=== PATIENT | male | born 1960 | race Caucasian/White ===

== ENCOUNTER 2018-01-05 11:00 | Inpatient (IN) ==
--- OUTSIDE RECORDS SUMMARY | 2018-01-05 11:24 | External Medical Summary | Referral Summary ---
:1960 Author Organization [facility] [place] [address] Care Team Providers Name Role Phone Roman Palomo Primary Care Physician Encounter VC Date(s): 10/16/16 - 10/16/16 [facility] [place] [phone] [place] Discharge Diagnosis: Chronic gout Discharge Diagnosis: Diabetes mellitus, type 2 Discharge Disposition: 01-Home or Self Care Attending Physician: Roman Palomo DO Admitting Physician: Roman Palomo DO Vital Signs Most recent to oldest [Reference Range]: 1 Temperature Tympanic [36.6-38.1 degC] 37.0 degC (10/16/16 3:12 PM) Peripheral Pulse Rate [60-100 bpm] 92 bpm (10/16/16 3:12 PM) Respiratory Rate [14-20 br/min] 16 br/min (10/16/16 3:12 PM) Blood Pressure [90-140/60-90 mmHg] 140/88 mmHg (10/16/16 3:12 PM) SpO2 97 % (10/16/16 3:12 PM) Problem List Condition Effective Dates Status Health Status Informant Diabetes mellitus type 2(Confirmed) Active Gout (disorder)(Confirmed) Active High cholesterol(Confirmed) Active Pure hypercholesterolemia Active (disorder)(Confirmed) Allergies, Adverse Reactions, Alerts No Known Medication Allergies Medications allopurinol 100 mg oral tablet See Instructions, TAKE ONE TABLET BY MOUTH DAILY ALONG WITH THE 300 MG TABLET, # 30 tabs, 3 Refill(s), eRx: [facility] #[id number] Start Date: 08/11/16 Status: Orderedcolchicine 0.6 mg oral tablet See Instructions, TAKE ONE TABLET BY MOUTH DAILY, # 30 tabs, 3 Refill(s), eRx: [facility] #[id number] Start Date: 08/11/16 Status: OrderedContour test strips Contour test strips, See Instructions, check blood sugar fasting and 2 hours after meals., # 100 Each, 1 Refill(s), Pharmacy: [facility] #[id number], check blood sugar fasting and 2 hours after meals. Start Date: 01/01/15 Status: OrderedCONTOUR TEST STRIPS See Instructions, CHECK BLOOD SUGARS FASTING AND 2 HOURS AFTER MEALS EVERY OTHER DAY, # 100 strip, 1Refill(s), eRx: [facility] #[id number], CHECK BLOOD SUGARS FASTING AND 2 HOURS AFTER MEALS EVERY OTHER DAY Start Date: 05/27/15 Status: OrderedCONTOUR TEST STRIPS See Instructions, CHECK BLOOD SUGARS FASTING AND 2 HOURS AFTER MEALS EVERY OTHER DAY, # 100 strip, 1Refill(s), eRx: [facility] #[id number], CHECK BLOOD SUGARS FASTING AND 2 HOURS AFTER MEALS EVERY OTHER DAY Start Date: 02/18/15 Status: Ordereddiclofenac 1% topical gel 4 g, Topical, QID, not to exceed 16 grams/day/single joint of lower extremities , # 300 g, 0 Refill(s), Pharmacy: [facility] #[id number] Start Date: 05/14/16 Status: OrderedglipiZIDE 5 mg oral tablet See Instructions, TAKE ONE TABLET BY MOUTH TWICE A DAY, # 60 tabs, 2 Refill(s), eRx: [facility] #[id number], TAKE ONE TABLET BY MOUTH TWICE A DAY Start Date: 03/03/16 Status: Orderedindomethacin 50 mg oral capsule 50 mg 1 caps, Oral, BID, as needed for gout pain, # 60 caps, 0 Refill(s), Pharmacy: [facility]#[id number], 1 caps Oral BID,x30 days,PRN:as needed for gout pain Start Date: 04/21/16 Stop Date: 05/21/16 Status: OrderedmetFORMIN 1,000 mg, Oral, BID, 0 Refill(s) Start Date: 01/18/16 Status: Ordered Results Hematology Most recent to oldest [Reference Range]: 1 WBC [4.8-10.8 10*3/uL] 5.3 10*3/uL (10/16/16 4:20 PM) RBC [4.60-6.20] 4.96 (10/16/16 4:20 PM) Hgb [14.0-18.0 gm/dL] 14.6 gm/dL (10/16/16 4:20 PM) Hct [42.0-52.0 %] 42.7 % (10/16/16 4:20 PM) MCV [82.0-99.0 fL] 86.1 fL (10/16/16 4:20 PM) MCH [27.0-32.0 pg] 29.4 pg (10/16/16 4:20 PM) MCHC [32.0-36.0 gm/dL] 34.2 gm/dL (10/16/16 4:20 PM) RDW [11.5-14.5 %] 12.9 % (10/16/16 4:20 PM) Platelet [150-400 10*3/uL] 231 10*3/uL (10/16/16 4:20 PM) MPV [8.8-14.8 fL] 10.3 fL (10/16/16 4:20 PM) Immature Granulocytes [0.0-1.0 %] 0.2 % (10/16/16 4:20 PM) Neutrophils [51-75 %] 51 % (10/16/16 4:20 PM) Lymphocytes [20-46 %] 35 % (10/16/16 4:20 PM) Monocytes [4-11 %] 10 % (10/16/16 4:20 PM) Eosinophils [0-4 %] 3 % (10/16/16 4:20 PM) Basophils [0-2 %] 0 % (10/16/16 4:20 PM) Neutro Absolute [1.90-7.00] 2.74 (10/16/16 4:20 PM) Lymph Absolute [0.80-3.30] 1.88 (10/16/16 4:20 PM) [place] Absolute [0.30-1.00] 0.52 (10/16/16 4:20 PM) Eos Absolute [0.00-0.50] 0.16 (10/16/16 4:20 PM) Baso Absolute [0.00-0.20] 0.02 (10/16/16 4:20 PM) Chemistry Most recent to oldest [Reference Range]: 1 Sodium Lvl [135-144 mEq/L] 139 mEq/L (10/16/16 4:20 PM) Potassium Lvl [3.5-5.2 mEq/L] 4.5 mEq/L (10/16/16 4:20 PM) Chloride [99-111 mEq/L] 107 mEq/L (10/16/16 4:20 PM) CO2 [23-31 mEq/L] 23 mEq/L (10/16/16 4:20 PM) AGAP [3-20] 9 (10/16/16 4:20 PM) BUN [8-26 mg/dL] 15 mg/dL (10/16/16 4:20 PM) Glucose Lvl [70-99 mg/dL] 134 mg/dL *HI* (10/16/16 4:20 PM) Creatinine Lvl [0.72-1.25 mg/dL] 1.07 mg/dL (10/16/16 4:20 PM) eGFR [>60 mL/min] >60 mL/min 1 (10/16/16 4:20 PM) Calcium Lvl [8.4-10.2 mg/dL] 9.3 mg/dL 2 (10/16/16 4:20 PM) Albumin Lvl [3.5-5.0 gm/dL] 4.3 gm/dL (10/16/16 4:20 PM) Total Protein [6.1-7.7 gm/dL] 6.9 gm/dL (10/16/16 4:20 PM) Globulin [1.8-4.0 gm/dL] 2.6 gm/dL (10/16/16 4:20 PM) ALT [0-55 U/L] 22 U/L (10/16/16 4:20 PM) AST [5-34 U/L] 22 U/L (10/16/16 4:20 PM) Alk Phos [40-150 U/L] 61 U/L (10/16/16 4:20 PM) Bili Total [0.2-1.2 mg/dL] 0.5 mg/dL (10/16/16 4:20 PM) Uric Acid [3.5-7.2 mg/dL] 5.4 mg/dL (10/16/16 4:20 PM) Chol [0-199 mg/dL] 172 mg/dL (10/16/16 4:20 PM) Trig [0-149 mg/dL] 204 mg/dL *HI* (10/16/16 4:20 PM) HDL [40-84 mg/dL] 33 mg/dL *LOW* (10/16/16 4:20 PM) LDL [0-130 mg/dL] 98 mg/dL (10/16/16 4:20 PM) VLDL Cholesterol [0-28 mg/dL] 41 mg/dL *HI* (10/16/16 4:20 PM) Cardiac Risk [0.0-5.7] 5.2 (10/16/16 4:20 PM) Hgb A1c [4.1-5.6 %] 8.4 % *HI* (10/16/16 4:20 PM) eAvg Glucose 194.4 mg/dL (10/16/16 4:20 PM) 1Result Comment: Multiply eGFR results by 1.21 for race.2Result Comment: Please note reference range change effective 10/02/2016. Immunizations No data available for this section Procedures Procedure Date Related Diagnosis Body Site Colonoscopy1 03/07/09 Rectal under anesthesia, part. fistulotomy with 03/07/09 placement of 1Colonoscopy within normal limits. 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 Plan repeat colonoscopy in 10 years (03/07/2019) Social History Social History Type Response Smoking Status Former smoker Assessment and Plan Extracted from: Title: Office Visit Note Author: Roman Palomo DO Date: 10/16/16 Assessment/Plan Chronic gout 1. Continue with daily Allopurinol and Colchicine as previous 2. Continue avoiding high protein diet 3. Recommend good hydration 4. Continue with Indomethacin during the flares but we need to be careful since he has CKD-3 5. Uric acid level is pending Ordered: Office Visit Level 4 Est 68256 Diabetes mellitus, type 2 1. Continue with current medications and dietary changes. 2. Continue with daily exercising 3. A1C is pending Ordered: CBC w/ Differential Comprehensive Metabolic Panel Hemoglobin A1c Office Visit Level 4 Est 64034 Uric Acid Gouty arthritis 1. Continue with recommendations as per [facility]. Ordered: CBC w/ Differential Comprehensive Metabolic Panel Hemoglobin A1c Office Visit Level 4 Est 28411 Uric Acid Mixed hyperlipidemia CMP is pending for management of his medication. Ordered: Office Visit Level 4 Est 89909
--- OUTSIDE RECORDS SUMMARY | 2018-01-05 11:24 | External Medical Summary | Referral Summary ---
:1960 Author Organization [facility] Rheumatology Address [address] [place] [address] [place] [address] Care Team Providers Name Role Phone Roman Palomo Primary Care Physician Encounter VC Date(s): 11/26/16 - 11/26/16 [facility], [address] [place] [phone] [place] Discharge Diagnosis: Medication management Discharge Diagnosis: Gout Discharge Disposition: 01-Home or Self Care Attending Physician: Britt Schwarz MD Admitting Physician: Britt Schwarz MD Vital Signs Most recent to oldest [Reference Range]: 1 Peripheral Pulse Rate [60-100 bpm] 87 bpm (11/26/16 3:47 PM) Blood Pressure [90-140/60-90 mmHg] 152/96 mmHg *HI* (11/26/16 3:47 PM) Problem List Condition Effective Dates Status Health Status Informant Diabetes mellitus type 2(Confirmed) Active High cholesterol(Confirmed) Active Gout (disorder)(Confirmed) Active Pure hypercholesterolemia Active (disorder)(Confirmed) Allergies, Adverse Reactions, Alerts No Known Medication Allergies Medications allopurinol 100 mg oral tablet mg tabs, Oral, Daily, 0 Refill(s) Start Date: 11/26/16 Status: Orderedallopurinol 300 mg oral tablet See Instructions, TAKE ONE TABLET BY MOUTH DAILY, # 30 tabs, eRx: [facility] #[id number] Start Date: 11/02/16 Status: Orderedcolchicine 0.6 mg oral tablet See Instructions, TAKE ONE TABLET BY MOUTH DAILY, # 30 tabs, eRx: [facility] #[id number] Start Date: 11/02/16 Status: OrderedContour test strips Contour test strips, See Instructions, check blood sugar fasting and 2 hours after meals., # 100 Each, 1 Refill(s), Pharmacy: [facility] #[id number], check blood sugar fasting and 2 hours after meals. Start Date: 01/01/15 Status: OrderedCONTOUR TEST STRIPS See Instructions, CHECK BLOOD SUGARS FASTING AND 2 HOURS AFTER MEALS EVERY OTHER DAY, # 100 strip, 1Refill(s), eRx: [facility] #[id number], CHECK BLOOD SUGARS FASTING AND 2 HOURS AFTER MEALS EVERY OTHER DAY Start Date: 05/27/15 Status: OrderedCONTOUR TEST STRIPS See Instructions, CHECK BLOOD SUGARS FASTING AND 2 HOURS AFTER MEALS EVERY OTHER DAY, # 100 strip, 1Refill(s), eRx: [facility] #[id number], CHECK BLOOD SUGARS FASTING AND 2 HOURS AFTER MEALS EVERY OTHER DAY Start Date: 02/18/15 Status: Ordereddiclofenac 1% topical gel 4 g, Topical, QID, not to exceed 16 grams/day/single joint of lower extremities , # 300 g, 0 Refill(s), Pharmacy: [facility] #[id number] Start Date: 05/14/16 Status: OrderedglipiZIDE 5 mg oral tablet See Instructions, TAKE ONE TABLET BY MOUTH TWICE A DAY, # 60 tabs, 2 Refill(s), eRx: [facility] #[id number], TAKE ONE TABLET BY MOUTH TWICE A DAY Start Date: 03/03/16 Status: Orderedindomethacin 50 mg oral capsule 50 mg 1 caps, Oral, BID, as needed for gout pain, # 60 caps, 0 Refill(s), Pharmacy: [facility]#[id number], 1 caps Oral BID,x30 days,PRN:as needed for gout pain Start Date: 04/21/16 Stop Date: 05/21/16 Status: OrderedmetFORMIN 1,000 mg, Oral, BID, 0 Refill(s) Start Date: 01/18/16 Status: Ordered Results No data available for this section Immunizations No data available for this section [...] Extracted from: Title: Office Visit Note Author: Britt Schwarz MD Date: 11/26/16 Assessment/Plan 1.Gout He appears overall to be stable. He has had occasional twinges of pain. He also appears to havemild osteoarthritis also first MTPs and may have some painrelated to this. Currently I will co ntinue allopurinol 400 mg and colchicine. He will let us know if any changes. 2.Medication management He had labwork including also liver testsdone last monthwith his primary care doctor which appears to be stable. Follow-up in 3-4 months.
--- OUTSIDE RECORDS SUMMARY | 2018-01-05 11:24 | External Medical Summary | Referral Summary ---
:1960 Author Organization [facility] [place] [address] Care Team Providers Name Role Phone Fernandez Morgan Primary Care Physician Encounter VC Date(s): 12/28/14 - 12/28/14 [facility] [place] [phone] Discharge Diagnosis: Gout (disorder) Discharge Diagnosis: High cholesterol Discharge Diagnosis: Diabetes mellitus type 2 Discharge Diagnosis: Epicondylitis, lateral (tennis elbow) Discharge Disposition: 01-Home or Self Care Attending Physician: Fernandez Morgan MD Admitting Physician: Fernandez Morgan MD Vital Signs Most recent to oldest [Reference Range]: 1 Temperature Tympanic [36.6-38.1 degC] 36.5 degC *LOW* (12/28/14 3:35 PM) Peripheral Pulse Rate [60-100 bpm] 83 bpm (12/28/14 3:35 PM) Respiratory Rate [14-20 br/min] 16 br/min (12/28/14 3:35 PM) Blood Pressure [90-140/60-90 mmHg] 136/84 mmHg (12/28/14 3:35 PM) SpO2 96 % (12/28/14 3:35 PM) Problem List Condition Effective Dates Status Health Status Informant Diabetes mellitus type 2(Confirmed) Active Gout (disorder)(Confirmed) Active High cholesterol(Confirmed) Active Pure hypercholesterolemia Active (disorder)(Confirmed) Allergies, Adverse Reactions, Alerts No Known Medication Allergies Medications allopurinol 100 mg oral tablet See Instructions, TAKE ONE TABLET BY MOUTH DAILY, # 30 tabs, 1 Refill(s), eRx: [facility] #[id number], TAKE ONE TABLET BY MOUTH DAILY Start Date: 06/17/15 Status: OrderedContour test strips Contour test strips, See Instructions, check blood sugar fasting and 2 hours after meals., # 100 Each, 1 Refill(s), Pharmacy: [facility] #[id number], check blood sugar fasting and 2 hours after meals. Start Date: 01/01/15 Status: OrderedCONTOUR TEST STRIPS See Instructions, CHECK BLOOD SUGARS FASTING AND 2 HOURS AFTER MEALS EVERY OTHER DAY, # 100 strip, 1Refill(s), eRx: [facility] #[id number], CHECK BLOOD SUGARS FASTING AND 2 HOURS AFTER MEALS EVERY OTHER DAY Start Date: 05/27/15 Status: OrderedCONTOUR TEST STRIPS See Instructions, CHECK BLOOD SUGARS FASTING AND 2 HOURS AFTER MEALS EVERY OTHER DAY, # 100 strip, 1Refill(s), eRx: [facility] #[id number], CHECK BLOOD SUGARS FASTING AND 2 HOURS AFTER MEALS EVERY OTHER DAY Start Date: 02/18/15 Status: Orderedindomethacin 0 Refill(s) Start Date: 05/08/15 Status: OrderedLopid 600 mg oral tablet See Instructions, TAKE ONE TABLET BY MOUTH TWICE A DAY, # 180 tabs, 1 Refill(s) , eRx: [facility] #[id number], TAKE ONE TABLET BY MOUTH TWICE A DAY Start Date: 01/22/15 Status: OrderedmetFORMIN 1000 mg oral tablet See Instructions, TAKE ONE TABLET BY MOUTH TWICE A DAY, # 60 tabs, 1 Refill(s), eRx: [facility] #[id number], TAKE ONE TABLET BY MOUTH TWICE A DAY Start Date: 06/28/15 Status: Ordered Results Hematology Most recent to oldest [Reference Range]: 1 WBC [4.8-10.8 10*3/uL] 6.8 10*3/uL (12/28/14 4:02 PM) RBC [4.60-6.20 10*6/uL] 4.87 10*6/uL (12/28/14 4:02 PM) Hgb [14.0-18.0 gm/dL] 14.5 gm/dL (12/28/14 4:02 PM) Hct [42.0-52.0 %] 40.7 % *LOW* (12/28/14 4:02 PM) MCV [82.0-99.0 fL] 83.6 fL (12/28/14 4:02 PM) MCH [27.0-32.0 pg] 29.8 pg (12/28/14 4:02 PM) MCHC [32.0-36.0 gm/dL] 35.6 gm/dL (12/28/14 4:02 PM) RDW [11.5-14.5 %] 12.6 % (12/28/14 4:02 PM) Platelet [150-400 10*3/uL] 250 10*3/uL (12/28/14 4:02 PM) MPV [8.8-14.8 fL] 10.0 fL (12/28/14 4:02 PM) Immature Granulocytes [0.0-1.0 %] 0.3 % (12/28/14 4:02 PM) Neutrophils [51-75 %] 57 % (12/28/14 4:02 PM) Lymphocytes [20-46 %] 31 % (12/28/14 4:02 PM) Monocytes [4-11 %] 9 % (12/28/14 4:02 PM) Eosinophils [0-4 %] 3 % (12/28/14 4:02 PM) Basophils [0-2 %] 0 % (12/28/14 4:02 PM) Neutro Absolute [1.90-7.00 THOUS] 3.85 THOUS (12/28/14 4:02 PM) Lymph Absolute [0.80-3.30 THOUS] 2.09 THOUS (12/28/14 4:02 PM) [place] Absolute [0.30-1.00 THOUS] 0.61 THOUS (12/28/14 4:02 PM) Eos Absolute [0.00-0.50 THOUS] 0.18 THOUS (12/28/14 4:02 PM) Baso Absolute [0.00-0.20 THOUS] 0.03 THOUS (12/28/14 4:02 PM) Chemistry Most recent to oldest [Reference Range]: 1 Sodium Lvl [135-144 mEq/L] 139 mEq/L (12/28/14 4:02 PM) Potassium Lvl [3.5-5.2 mEq/L] 4.0 mEq/L (12/28/14 4:02 PM) Chloride [99-111 mEq/L] 109 mEq/L (12/28/14 4:02 PM) CO2 [23-31 mEq/L] 22 mEq/L *LOW* (12/28/14 4:02 PM) AGAP [3-20] 8 (12/28/14 4:02 PM) BUN [8-26 mg/dL] 19 mg/dL (12/28/14 4:02 PM) Glucose Lvl [70-99 mg/dL] 132 mg/dL *HI* (12/28/14 4:02 PM) Creatinine Lvl [0.72-1.25 mg/dL] 1.05 mg/dL (12/28/14 4:02 PM) eGFR [>60 mL/min] >60 mL/min 1 (12/28/14 4:02 PM) Calcium Lvl [8.9-10.5 mg/dL] 9.9 mg/dL (12/28/14 4:02 PM) Albumin Lvl [3.5-5.0 gm/dL] 4.3 gm/dL (12/28/14 4:02 PM) Total Protein [6.4-8.3 gm/dL] 7.0 gm/dL (12/28/14 4:02 PM) Globulin [1.8-4.0 gm/dL] 2.7 gm/dL (12/28/14 4:02 PM) ALT [0-55 U/L] 12 U/L (12/28/14 4:02 PM) AST [5-34 U/L] 14 U/L (12/28/14 4:02 PM) Alk Phos [40-150 U/L] 63 U/L (12/28/14 4:02 PM) Bili Total [0.2-1.2 mg/dL] 0.8 mg/dL (12/28/14 4:02 PM) Uric Acid [3.5-7.2 mg/dL] 8.7 mg/dL *HI* (12/28/14 4:02 PM) Chol [0-199 mg/dL] 161 mg/dL (12/28/14 4:02 PM) Trig [0-149 mg/dL] 108 mg/dL (12/28/14 4:02 PM) HDL [40-84 mg/dL] 34 mg/dL *LOW* (12/28/14 4:02 PM) LDL [0-130 mg/dL] 105 mg/dL (12/28/14 4:02 PM) VLDL Cholesterol [0-28 mg/dL] 22 mg/dL (12/28/14 4:02 PM) Cardiac Risk [0.0-5.7] 4.7 (12/28/14 4:02 PM) Hgb A1c [4.1-5.6 %] 7.5 % *HI* (12/28/14 4:02 PM) eAvg Glucose 168.6 mg/dL (12/28/14 4:02 PM) 1Result Comment: Multiply eGFR results by 1.21 for race. Immunizations No data available for this section Procedures Procedure Date Related Diagnosis Body Site Collection of venous blood by venipuncture 12/28/14 Colonoscopy1 03/07/09 Rectal under anesthesia, part. fistulotomy with 03/07/09 placement of 1Colonoscopy within normal limits. 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 Plan repeat colonoscopy in 10 years (03/07/2019) Social History Social History Type Response Smoking Status Former smoker Assessment and Plan Extracted from: Title: Office Visit Note Author: Fernandez Morgan MD Date: 12/28/14 Assessment/Plan Diabetes mellitus type 2 Plan: I'm going to check an A1c today. Initially was continue the current medications. I recommend that you see Dr. Chaparro for eye care. I also recommended that you chec k blood sugar fasting and 2 hours postprandial. I recommended daily exercise. I want tosee you back in 3 months. Ordered: Comprehensive Metabolic Panel Hemoglobin A1c Epicondylitis, lateral (tennis elbow) Plan: Continue current indomethacin follow-up if symptoms are not improving in 3 weeks. We discussed rest. Gout (disorder) Plan: Continue current medication follow-up in 3 months. Ordered: CBC w/ Differential Uric Acid High cholesterol Plan: Continue current medication and follow-up in 3 months. Ordered: Lipid Panel Orders: indomethacin, 1 caps, Oral, BID, X 30 days, # 60 caps, 3 Refill(s), Pharmacy: [facility] #[id number], 1 caps Oral BID,x30 days
--- OUTSIDE RECORDS SUMMARY | 2018-01-05 11:24 | External Medical Summary | Referral Summary ---
:1960 Author Organization [facility] [place] [address] Care Team Providers Name Role Phone Roman Palomo Primary Care Physician Encounter VC Date(s): 03/04/16 - 03/04/16 [facility] [place] [phone] [place] Discharge Diagnosis: Inflammatory arthritis Discharge Disposition: 01-Home or Self Care Attending Physician: Roman Palomo DO Admitting Physician: Roman Palomo DO Vital Signs Most recent to oldest [Reference Range]: 1 Temperature Tympanic [36.6-38.1 degC] 36.5 degC *LOW* (03/04/16 1:50 PM) Peripheral Pulse Rate [60-100 bpm] 77 bpm (03/04/16 1:50 PM) Blood Pressure [90-140/60-90 mmHg] 151/85 mmHg *HI* (03/04/16 1:50 PM) Problem List Condition Effective Dates Status Health Status Informant Diabetes mellitus type 2(Confirmed) Active Gout (disorder)(Confirmed) Active High cholesterol(Confirmed) Active Pure hypercholesterolemia Active (disorder)(Confirmed) Allergies, Adverse Reactions, Alerts No Known Medication Allergies Medications allopurinol 100 mg oral tablet 100 mg 1 tabs, Oral, Daily, X 30 days, # 30 tabs, 6 Refill(s), Pharmacy: [facility] #[id number], 1tabs Oral Daily,x30 days Start Date: 11/29/15 Stop Date: 06/26/16 Status: OrderedContour test strips Contour test strips, See Instructions, check blood sugar fasting and 2 hours after meals., # 100 Each, 1 Refill(s), Pharmacy: [facility] #[id number], check blood sugar fasting and 2 hours after meals. Start Date: 01/01/15 Status: OrderedCONTOUR TEST STRIPS See Instructions, CHECK BLOOD SUGARS FASTING AND 2 HOURS AFTER MEALS EVERY OTHER DAY, # 100 strip, 1Refill(s), eRx: [facility] #[id number], CHECK BLOOD SUGARS FASTING AND 2 HOURS AFTER MEALS EVERY OTHER DAY Start Date: 05/27/15 Status: OrderedCONTOUR TEST STRIPS See Instructions, CHECK BLOOD SUGARS FASTING AND 2 HOURS AFTER MEALS EVERY OTHER DAY, # 100 strip, 1Refill(s), eRx: [facility] #[id number], CHECK BLOOD SUGARS FASTING AND 2 HOURS AFTER MEALS EVERY OTHER DAY Start Date: 02/18/15 Status: OrderedglipiZIDE 5 mg oral tablet See Instructions, TAKE ONE TABLET BY MOUTH TWICE A DAY, # 60 tabs, 2 Refill(s), eRx: [facility] #[id number], TAKE ONE TABLET BY MOUTH TWICE A DAY Start Date: 03/03/16 Status: OrderedLopid 600 mg oral tablet 600 mg 1 tabs, Oral, BID, X 30 days, # 60 tabs, 6 Refill(s), Pharmacy: [facility] #[id number], 1 tabs Oral BID,x30 days Start Date: 11/29/15 Stop Date: 06/26/16 Status: OrderedmetFORMIN Oral, 0 Refill(s) Start Date: 01/18/16 Status: OrderedpredniSONE 20 mg oral tablet 60 mg 3 tabs, Oral, Daily, X 5 days, # 15 tabs, 0 Refill(s), Pharmacy: [facility] #[id number], 3 tabs Oral Daily,x5 days Start Date: 03/04/16 Stop Date: 03/09/16 Status: Ordered Results Chemistry Most recent to oldest [Reference Range]: 1 Sodium Lvl [135-144 mEq/L] 140 mEq/L (03/04/16 3:12 PM) Potassium Lvl [3.5-5.2 mEq/L] 4.1 mEq/L (03/04/16 3:12 PM) Chloride [99-111 mEq/L] 108 mEq/L (03/04/16 3:12 PM) CO2 [23-31 mEq/L] 23 mEq/L (03/04/16 3:12 PM) AGAP [3-20] 9 (7/6/16 3:12 PM) BUN [8-26 mg/dL] 14 mg/dL (03/04/16 3:12 PM) Glucose Lvl [70-99 mg/dL] 117 mg/dL *HI* (03/04/16 3:12 PM) Creatinine Lvl [0.72-1.25 mg/dL] 1.14 mg/dL (03/04/16 3:12 PM) eGFR [>60 mL/min] >60 mL/min 1 (03/04/16 3:12 PM) Calcium Lvl [8.9-10.5 mg/dL] 9.4 mg/dL (03/04/16 3:12 PM) Uric Acid [3.5-7.2 mg/dL] 8.0 mg/dL *HI* (03/04/16 3:12 PM) 1Result Comment: Multiply eGFR results by [...] Visit Note Author: Roman Palomo DO Date: 03/04/16 Assessment/Plan 1.Inflammatory arthritis, Other secondary chronic gout, left ankle and foot, without tophus (tophi) 1. This does not appear to be a classic gout presentation. This may very well be pseudogout versus inflammatory arthritis secondary to gout. 2. Discontinue colchicine. 3. Prednisone 60 mg daily for 5 days. 4. Labs order to consist of basic metabolic profile and uric acid. Results are pending. 5. Imaging of the ankle was negative for any bony or joint disruption. 6. Follow-up in 2 days if no improvement. Ordered: Office Visit Level 4 Est 78837 Acute gout 1.Findings and recommendations as above. 2. Over 25 minutes were spent [id number] with this patient. Ordered: Basic Metabolic Panel Office Visit Level 4 Est 21662 Uric Acid XR Ankle Complete Left Orders: predniSONE, 60 mg 3 tabs, Oral, Daily, X 5 days, # 15 tabs, 0 Refill( s), Pharmacy: [facility] #[id number], 3 tabs Oral Daily,x5 days
--- OUTSIDE RECORDS SUMMARY | 2018-01-05 11:24 | External Medical Summary | Referral Summary ---
:1960 Author Organization [facility] [address] [place] [address] Care Team Providers Name Role Phone Roman Palomo Primary Care Physician Encounter VC Date(s): 03/16/16 - 03/16/16 [facility] [address] [place] [address] Discharge Diagnosis: Right ankle pain Discharge Diagnosis: Multiple joint pain Discharge Disposition: 01-Home or Self Care Attending Physician: Roman Palomo DO Admitting Physician: Roman Palomo DO Vital Signs Most recent to oldest [Reference Range]: 1 Temperature Tympanic [36.6-38.1 degC] 37.1 degC (03/16/16 2:02 PM) Peripheral Pulse Rate [60-100 bpm] 112 bpm *HI* (03/16/16 2:02 PM) Blood Pressure [90-140/60-90 mmHg] 138/82 mmHg (03/16/16 2:02 PM) SpO2 96 % (03/16/16 2:02 PM) Problem List Condition Effective Dates Status Health Status Informant Diabetes mellitus type 2(Confirmed) Active Gout (disorder)(Confirmed) Active High cholesterol(Confirmed) Active Pure hypercholesterolemia Active (disorder)(Confirmed) Allergies, Adverse Reactions, Alerts No Known Medication Allergies Medications allopurinol 100 mg oral tablet 100 mg 1 tabs, Oral, Daily, X 30 days, # 30 tabs, 6 Refill(s), Pharmacy: [facility] #[id number], 1tabs Oral Daily,x30 days Start Date: 11/29/15 Stop Date: 06/26/16 Status: Orderedallopurinol 300 mg oral tablet 300 mg 1 tabs, Oral, Daily, # 30 tabs, 1 Refill(s), Pharmacy: [facility] # [id number], 1 tabs Oral Daily Start Date: 03/06/16 Status: OrderedContour test strips Contour test strips, See Instructions, check blood sugar fasting and 2 hours after meals., # 100 Each, 1 Refill(s), Pharmacy: [facility] #[id number], check blood sugar fasting and 2 hours after meals. Start Date: 01/01/15 Status: OrderedCONTOUR TEST STRIPS See Instructions, CHECK BLOOD SUGARS FASTING AND 2 HOURS AFTER MEALS EVERY OTHER DAY, # 100 strip, 1Refill(s), eRx: [facility] #[id number], CHECK BLOOD SUGARS FASTING AND 2 HOURS AFTER MEALS EVERY OTHER DAY Start Date: 05/27/15 Status: OrderedCONTOUR TEST STRIPS See Instructions, CHECK BLOOD SUGARS FASTING AND 2 HOURS AFTER MEALS EVERY OTHER DAY, # 100 strip, 1Refill(s), eRx: [facility] #[id number], CHECK BLOOD SUGARS FASTING AND 2 HOURS AFTER MEALS EVERY OTHER DAY Start Date: 02/18/15 Status: OrderedglipiZIDE 5 mg oral tablet See Instructions, TAKE ONE TABLET BY MOUTH TWICE A DAY, # 60 tabs, 2 Refill(s), eRx: [facility] #[id number], TAKE ONE TABLET BY MOUTH TWICE A DAY Start Date: 03/03/16 Status: OrderedLopid 600 mg oral tablet 600 mg 1 tabs, Oral, BID, X 30 days, # 60 tabs, 6 Refill(s), Pharmacy: [facility] #[id number], 1 tabs Oral BID,x30 days Start Date: 11/29/15 Stop Date: 06/26/16 Status: OrderedmetFORMIN Oral, 0 Refill(s) Start Date: 01/18/16 Status: Ordered [...] Visit Note Author: Roman Palomo DO Date: 03/16/16 Assessment/Plan 1.Right ankle pain, Pain in right ankle and joints of right foot 1. I suspect the right ankle pain and first metatarsal pain is also gout in nature. 2. Continue with allopurinol at 300 mg daily. 3. I don't think we would gain much managing his gout by changing him to Uloric since it has the same mechanism of action as allopurinol. Patient voiced understanding. 4. Repeat basic metabolic profile and uric acid in one month. We will titrate the allopurinol todecrease his uric acid level less than 6. Ordered: Office Visit Level 3 Est 74529 2.Multiple joint pain, Pain in unspecified joint 1.I agree with referral to [facility] chopper for farther evaluation and management of his chronic joint pains. Ordered: Office Visit Level 3 Est 25012 Orders: Internal Referral to Rheumatology
--- OUTSIDE RECORDS SUMMARY | 2018-01-05 11:24 | External Medical Summary | Referral Summary ---
:1960 Author Organization [facility] [address] [place] [address], Family Medicine Address [address] [address] Care Team Providers Name Role Phone Paul Rodriguez Primary Care Physician Encounter VC Date(s): 07/16/17 - 07/16/17 [facility] [address] [place] [address], Family Medicine [address] [address] [place] Discharge Diagnosis: DM2 (diabetes mellitus, type 2) Discharge Diagnosis: Mixed hyperlipidemia Discharge Diagnosis: Soft tissue mass Discharge Disposition: 01-Home or Self Care Attending Physician: Paul Rodriguez DO Admitting Physician: Paul Rodriguez DO Vital Signs Most recent to oldest [Reference Range]: 1 Peripheral Pulse Rate [60-100 bpm] 96 bpm (07/16/17 2:31 PM) Respiratory Rate [14-20 br/min] 16 br/min (07/16/17 2:31 PM) Blood Pressure [90-140/60-90 mmHg] 138/80 mmHg (07/16/17 2:31 PM) Problem List Condition Effective Dates Status Health Status Informant Diabetes mellitus type 2(Confirmed) Active High cholesterol(Confirmed) Active Gout (disorder)(Confirmed) Active Pure hypercholesterolemia Active (disorder)(Confirmed) Allergies, Adverse Reactions, Alerts No Known Medication Allergies Medications allopurinol 100 mg oral tablet See Instructions, TAKE ONE TABLET BY MOUTH DAILY ALONG WITH THE 300 MG TABLET, # 30 tabs, 5 Refill(s), Pharmacy: [facility] #[id number], TAKE ONE TABLET BY MOUTH DAILY ALONG WITH THE 300 MG TABLET Start Date: 06/10/17 Status: Orderedallopurinol 300 mg oral tablet See Instructions, TAKE ONE TABLET BY MOUTH DAILY, # 30 tabs, 5 Refill(s), Pharmacy: [facility]#[id number], TAKE ONE TABLET BY MOUTH DAILY Start Date: 06/10/17 Status: OrderedColcrys 0.6 mg oral tablet See Instructions, Pt. is tapering down to 3 a week. Currently taking one daily for 6 days a week, # 30 tabs, 5 Refill(s), Pharmacy: [facility] #[id number] Start Date: 06/10/17 Status: OrderedContour test strips Contour test strips, See Instructions, check blood sugar fasting and 2 hours after meals., # 100 Each, 1 Refill(s), Pharmacy: [facility] #[id number], check blood sugar fasting and 2 hours after meals. Start Date: 01/01/15 Status: OrderedCONTOUR TEST STRIPS See Instructions, CHECK BLOOD SUGARS FASTING AND 2 HOURS AFTER MEALS EVERY OTHER DAY, # 100 strip, 1Refill(s), eRx: [facility] #[id number], CHECK BLOOD SUGARS FASTING AND 2 HOURS AFTER MEALS EVERY OTHER DAY Start Date: 05/27/15 Status: OrderedCONTOUR TEST STRIPS See Instructions, CHECK BLOOD SUGARS FASTING AND 2 HOURS AFTER MEALS EVERY OTHER DAY, # 100 strip, 1Refill(s), eRx: [facility] #[id number], CHECK BLOOD SUGARS FASTING AND 2 HOURS AFTER MEALS EVERY OTHER DAY Start Date: 02/18/15 Status: Ordereddiclofenac 1% topical gel 4 g, Topical, QID, not to exceed 16 grams/day/single joint of lower extremities , # 300 g, 0 Refill(s), Pharmacy: [facility] #[id number] Start Date: 05/14/16 Status: Orderedgemfibrozil 600 mg oral tablet See Instructions, TAKE ONE TABLET BY MOUTH TWICE A DAY, # 60 tabs, 5 Refill(s), eRx: [facility] #[id number], TAKE ONE TABLET BY MOUTH TWICE A DAY Start Date: 12/01/16 Status: Orderedindomethacin 50 mg oral capsule 50 mg 1 caps, Oral, BID, as needed for gout pain, # 60 caps, 0 Refill(s), Pharmacy: [facility]#[id number], 1 caps Oral BID,x30 days,PRN:as needed for gout pain Start Date: 04/21/16 Stop Date: 05/21/16 Status: OrderedJanuvia 100 mg oral tablet See Instructions, TAKE ONE TABLET BY MOUTH DAILY, # 30 tabs, 5 Refill(s), eRx: [facility] #[id number] Start Date: 07/02/17 Status: OrderedmetFORMIN 1000 mg oral tablet See Instructions, TAKE ONE TABLET BY MOUTH TWICE A DAY, # 60 tabs, 5 Refill(s), eRx: [facility] #[id number], TAKE ONE TABLET BY MOUTH TWICE A DAY Start Date: 12/01/16 Status: Ordered Procedures Procedure Date Related Diagnosis Body Site Colonoscopy1 03/07/09 Rectal under anesthesia, part. fistulotomy with 03/07/09 placement of 1Colonoscopy within normal limits. 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 Plan repeat colonoscopy in 10 years (03/07/2019) Social History Social History Type Response Smoking Status Former smoker entered on: 07/30/14 Assessment and Plan Extracted from: Title: Ambulatory Patient Education Author: Paul Rodriguez DO Date: The following Patient Education Materials have been given to the patient: Home Health Care Diabetes and Exercise Exercising regularly is important. It is not just about losing weight. It has many health benefits, such as: Improving your overall fitness, flexibility, and endurance. Increasing your bone density. Helping with weight control. Decreasing your body fat. Increasing your muscle strength. Reducing stress and tension. Improving your overall health. People with diabetes who exercise gain additional benefits because exercise: Reduces appetite. Improves the body's use of blood sugar (glucose). Helps lower or control blood glucose. Decreases blood pressure. Helps control blood lipids (such as cholesterol and triglycerides). Improves the body's use of the hormone insulin by: Increasing the body's insulin sensitivity. Reducing the body's insulin needs. Decreases the risk for heart disease because exercising: Lowers cholesterol and triglycerides levels. Increases the levels of good cholesterol (such as high-density lipoproteins [HDL]) in the body. Lowers blood glucose levels. YOUR ACTIVITY PLAN Choose an activity that you enjoy, and set realistic goals. To exercise safely , you should begin practicing any new physical activity slowly, and gradually increase the intensity of the exercise over ti me. Your health care provider or critical care educator can help create an activity plan that works for you. General recommendations include: Encouraging children to engage in at least 60 minutes of physical activity each day. Stretching and performing strength training exercises, such as yoga or weight lifting, at least 2 times per week. Performing a total of at least 150 minutes of moderate-intensity exercise each week, such as brisk walking or water aerobics. Exercising at least 3 days per week, making sure you allow no more than 2 consecutive days to pass without exercising. Avoiding long periods of inactivity (90 minutes or more). When you have to spend an extended period of time sitting down, take frequent breaks to walk or stretch. RECOMMENDATIONS FOR EXERCISING WITH TYPE 1 OR TYPE 2 DIABETES Check your blood glucose before exercising. If blood glucose levels are greater than 240 mg/dL, check for urine ketones. Do not exercise if ketones are present. Avoid injecting insulin into areas of the body that are going to be exercised. For example, avoid injecting insulin into: The arms when playing tennis. The legs when jogging. Keep a record of: Food intake before and after you exercise. Expected peak times of insulin action. Blood glucose levels before and after you exercise. The type and amount of exercise you have done. Review your records with your health care provider. Your health care provider will help you to develop guidelines for adjusting food intake and insulin amounts before and after exercising. If you take insulin or oral hypoglycemic agents, watch for signs and symptoms of hypoglycemia. They include: Dizziness. Shaking. Sweating. Chills. Confusion. Drink plenty of water while you exercise to prevent dehydration or heat stroke. Body water is lost during exercise and must be replaced. Talk to your health care provider before starting an exercise program to make sure it is safe for you. Remember, almost any type of activity is better than none. This information is not intended to replace advice given to you by your health care provider. Make sure you discuss any questions you have with your health care provider. Document Released: 11/05/2004 Document Revised: 12/07/2016 Document Reviewed: 01/23/2014 [employer] Interactive Patient Education 2017 [employer] No follow up information was provided. Extracted from: Title: DM/HLD Author: Paul Rodriguez DO Date: 07/16/17 Impression and Plan Diagnosis DM2 (diabetes mellitus, type 2) ([id number] E11.9, Discharge, Medical). Mixed hyperlipidemia (FRI00-GL E78.2, Discharge, Medical). Soft tissue mass (QSS04-DT M79.9, Discharge, Medical). Plan: 1. diabetes -- cdm completed continue with diet and exercise continue with current meds pt doesnt want to adjust meds right now - wants to try diet, exercise, weight loss first 2. HLD -- Decrease cholesterol and fats in diet cont. med. discussed penitentiary effects of elevated lipds including HTN, PAD, CVA, GA. LAB- up to date 3. disc palmar lesion -since pain is improved -- will continue to watch; if pain returns then will need to go to ortho- hand, follow up in 3 months. Patient Instructions: Diabetes and Exercise, Follow-up. Dx/Order Association Plan: .
--- OUTSIDE RECORDS SUMMARY | 2018-01-05 11:24 | External Medical Summary | Referral Summary ---
:1960 Author Organization [facility] [place] [place] [address] Care Team Providers Name Role Phone Roman Palomo Primary Care Physician Encounter VC Date(s): 11/29/15 - 11/29/15 [facility] [address] [place] [phone] [place] Discharge Diagnosis: Elevated blood pressure Discharge Diagnosis: Gout (disorder) Discharge Disposition: 01-Home or Self Care Attending Physician: Roman Palomo DO Admitting Physician: Roman Palomo DO Vital Signs Most recent to oldest [Reference Range]: 1 Temperature Tympanic [36.6-38.1 degC] 36.8 degC (11/29/15 2:31 PM) Peripheral Pulse Rate [60-100 bpm] 100 bpm (11/29/15 2:31 PM) Blood Pressure [90-140/60-90 mmHg] 140/90 mmHg (11/29/15 2:31 PM) SpO2 98 % (11/29/15 2:31 PM) Problem List Condition Effective Dates Status Health Status Informant Diabetes mellitus type 2(Confirmed) Active Gout (disorder)(Confirmed) Active High cholesterol(Confirmed) Active Pure hypercholesterolemia Active (disorder)(Confirmed) Allergies, Adverse Reactions, Alerts No Known Medication Allergies Medications allopurinol 100 mg oral tablet 100 mg 1 tabs, Oral, Daily, X 30 days, # 30 tabs, 6 Refill(s), Pharmacy: [facility] #[id number], 1tabs Oral Daily,x30 days Start Date: 11/29/15 Stop Date: 06/26/16 Status: OrderedContour test strips Contour test strips, See Instructions, check blood sugar fasting and 2 hours after meals., # 100 Each, 1 Refill(s), Pharmacy: [facility] #[id number], check blood sugar fasting and 2 hours after meals. Start Date: 01/01/15 Status: OrderedCONTOUR TEST STRIPS See Instructions, CHECK BLOOD SUGARS FASTING AND 2 HOURS AFTER MEALS EVERY OTHER DAY, # 100 strip, 1Refill(s), eRx: [facility] #[id number], CHECK BLOOD SUGARS FASTING AND 2 HOURS AFTER MEALS EVERY OTHER DAY Start Date: 05/27/15 Status: OrderedCONTOUR TEST STRIPS See Instructions, CHECK BLOOD SUGARS FASTING AND 2 HOURS AFTER MEALS EVERY OTHER DAY, # 100 strip, 1Refill(s), eRx: [facility] #[id number], CHECK BLOOD SUGARS FASTING AND 2 HOURS AFTER MEALS EVERY OTHER DAY Start Date: 02/18/15 Status: Orderedindomethacin 0 Refill(s) Start Date: 05/08/15 Status: OrderedLopid 600 mg oral tablet 600 mg 1 tabs, Oral, BID, X 30 days, # 60 tabs, 6 Refill(s), Pharmacy: [facility] #[id number], 1 tabs Oral BID,x30 days Start Date: 11/29/15 Stop Date: 06/26/16 Status: OrderedmetFORMIN 1000 mg oral tablet 1,000 mg 1 tabs, Oral, BID, X 30 days, # 60 tabs, 6 Refill(s), Pharmacy: [facility] #[id number], 1tabs Oral BID,x30 days Start Date: 11/29/15 Stop Date: 06/26/16 Status: Ordered Results Hematology Most recent to oldest [Reference Range]: 1 WBC [4.8-10.8 10*3/uL] 6.8 10*3/uL (11/29/15 3:38 PM) RBC [4.60-6.20] 5.24 (11/29/15 3:38 PM) Hgb [14.0-18.0 gm/dL] 15.6 gm/dL (11/29/15 3:38 PM) Hct [42.0-52.0 %] 45.6 % (11/29/15 3:38 PM) MCV [82.0-99.0 fL] 87.0 fL (11/29/15 3:38 PM) MCH [27.0-32.0 pg] 29.8 pg (11/29/15 3:38 PM) MCHC [32.0-36.0 gm/dL] 34.2 gm/dL (11/29/15 3:38 PM) RDW [11.5-14.5 %] 13.2 % (11/29/15 3:38 PM) Platelet [150-400 10*3/uL] 261 10*3/uL (11/29/15 3:38 PM) MPV [8.8-14.8 fL] 10.2 fL (11/29/15 3:38 PM) Immature Granulocytes [0.0-1.0 %] 0.3 % (11/29/15 3:38 PM) Neutrophils [51-75 %] 60 % (11/29/15 3:38 PM) Lymphocytes [20-46 %] 26 % (11/29/15 3:38 PM) Monocytes [4-11 %] 12 % *HI* (11/29/15 3:38 PM) Eosinophils [0-4 %] 1 % (11/29/15 3:38 PM) Basophils [0-2 %] 1 % (11/29/15 3:38 PM) Neutro Absolute [1.90-7.00 10*3] 4.04 10*3 (11/29/15 3:38 PM) Lymph Absolute [0.80-3.30 10*3] 1.75 10*3 (11/29/15 3:38 PM) [place] Absolute [0.30-1.00 10*3] 0.82 10*3 (11/29/15 3:38 PM) Eos Absolute [0.00-0.50 10*3] 0.08 10*3 (11/29/15 3:38 PM) Baso Absolute [0.00-0.20 10*3] 0.04 10*3 (11/29/15 3:38 PM) Chemistry Most recent to oldest [Reference Range]: 1 Sodium Lvl [135-144 mEq/L] 137 mEq/L (11/29/15 3:38 PM) Potassium Lvl [3.5-5.2 mEq/L] 4.2 mEq/L (11/29/15 3:38 PM) Chloride [99-111 mEq/L] 105 mEq/L (11/29/15 3:38 PM) CO2 [23-31 mEq/L] 23 mEq/L (11/29/15 3:38 PM) AGAP [3-20] 9 (11/29/15 3:38 PM) BUN [8-26 mg/dL] 22 mg/dL (11/29/15 3:38 PM) Glucose Lvl [70-99 mg/dL] 111 mg/dL *HI* (11/29/15 3:38 PM) Creatinine Lvl [0.72-1.25 mg/dL] 1.50 mg/dL *HI* (11/29/15 3:38 PM) eGFR [>60 mL/min] 48 mL/min 1 *ABN* (11/29/15 3:38 PM) Calcium Lvl [8.9-10.5 mg/dL] 9.6 mg/dL (11/29/15 3:38 PM) Albumin Lvl [3.5-5.0 gm/dL] 4.6 gm/dL (11/29/15 3:38 PM) Total Protein [6.4-8.3 gm/dL] 7.3 gm/dL (11/29/15 3:38 PM) Globulin [1.8-4.0 gm/dL] 2.7 gm/dL (11/29/15 3:38 PM) ALT [0-55 U/L] 13 U/L (11/29/15 3:38 PM) AST [5-34 U/L] 15 U/L (11/29/15 3:38 PM) Alk Phos [40-150 U/L] 72 U/L (11/29/15 3:38 PM) Bili Total [0.2-1.2 mg/dL] 0.7 mg/dL (11/29/15 3:38 PM) Uric Acid [3.5-7.2 mg/dL] 9.0 mg/dL *HI* (11/29/15 3:38 PM) PSA (wihout Reflex Free) [0.0-3.5 ng/mL] 2.8 ng/mL 2 (11/29/15 3:38 PM) TSH with Reflex Free T4 [0.35-4.94] 1.36 (11/29/15 3:38 PM) 1Result Comment: Multiply eGFR results by 1.21 for race.2Result Comment: AUA PSA Best Practice Guidelines: Age-Adjusted PSA Values by Ethnic Group Age Range Asians - Caucasians Americans 40-49 0-2.0 0-2.0 0-2.5 50-59 0-3.0 0-4.0 0-3.5 60-69 0-4.0 0-4.5 0-4.5 70-79 0-5.0 0-5.5 0-6.5 Immunizations No data available for this section [...] Visit Note Author: Roman Palomo DO Date: 11/29/15 Assessment/Plan Diabetes mellitus type 2, controlled 1. Based on his last hemoglobin A1c 7 months ago, his blood sugars have been well controlled. 2. Recheck A1c today. 3. UA with metformin twice a day. 4. If his A1c is above 7 then we plan on seeing him in 3 months. If it remains below 7 then we will see him in 6 months. Ordered: CBC w/ Differential Comprehensive Metabolic Panel Hemoglobin A1c Office Visit Level 4 Est 02334 Prostate Specific Antigen TSH with Reflex Free T4 Elevated blood pressure 1. Low salt diet recommended. 2. Weight loss recommended. 3. Continue with daily exercise. 4. If his blood pressure continues to be marginally elevated then we may consider starting him on lisinopril. Gout (disorder) 1. Labs ordered today for renal function and uric acid. We will adjust allopurinol his uric acid is above 6. 2. Low protein diet recommended. 3. Pathophysiology of gout explained in detail to the patient. He voiced understanding, all questions were answered. Ordered: Office Visit Level 4 Est 75599 Uric Acid Mixed hyperlipidemia 1. CMP and lipid panel ordered today. 2. Continue with gemfibrozil. Ordered: Office Visit Level 4 Est 18501 Orders: allopurinol, 100 mg 1 tabs, Oral, Daily, X 30 days, # 30 tabs, 6 Refill(s), Pharmacy: [facility] #[id number], 1 tabs Oral Daily,x30 days gemfibrozil, 600 mg 1 tabs, Oral, BID, X 30 days, # 60 tabs, 6 Refill(s), Pharmacy: [facility] #[id number], 1 tabs Oral BID,x30 days metFORMIN, 1,000 mg 1 tabs, Oral, BID, X 30 days, # 60 tabs, 6 Refill(s), Pharmacy: [facility] #[id number], 1 tabs Oral BID,x30 days Addendum by Roman Palomo DO on November 28, Gen. exam: 2015 15:40:53 CDT 1. This is a well-developed well-nourished 55-year-old gentleman who appears younger than his age. 2. Continue with healthy lifestyle changes. 3. For his family history of prostate cancer, PSA was ordered today. We will make recommendations accordingly. 4. Follow-up yearly for well male exam.
--- OUTSIDE RECORDS SUMMARY | 2018-01-05 11:24 | External Medical Summary | Referral Summary ---
:1960 Author Organization [facility] [place] [address] Care Team Providers Name Role Phone Fernandez Morgan Primary Care Physician Encounter VC Date(s): 12/28/14 - 12/28/14 [facility] [address] [place] [address]- Discharge Diagnosis: Gout (disorder) Discharge Diagnosis: High [...] DAILY, # 30 tabs, 1 Refill(s), eRx: [facility] #[id number], TAKE ONE TABLET BY MOUTH DAILY Start Date: 06/17/15 Status: OrderedContour test strips Contour test strips, See Instructions, check blood sugar fasting and 2 hours after meals., # 100 Each, 1 Refill(s), Pharmacy: [facility] #[id number], check blood sugar fasting and 2 hours after meals. Start Date: 01/01/15 Status: OrderedCONTOUR TEST STRIPS See Instructions, CHECK BLOOD SUGARS FASTING AND 2 HOURS AFTER MEALS EVERY OTHER DAY, # 100 strip, 1Refill(s), eRx: [facility] #[id number], CHECK BLOOD SUGARS FASTING AND 2 HOURS AFTER MEALS EVERY OTHER DAY Start Date: 05/27/15 Status: OrderedCONTOUR TEST STRIPS See Instructions, CHECK BLOOD SUGARS FASTING AND 2 HOURS AFTER MEALS EVERY OTHER DAY, # 100 strip, 1Refill(s), eRx: [facility] #[id number], CHECK BLOOD SUGARS FASTING AND 2 HOURS AFTER MEALS EVERY OTHER DAY Start Date: 02/18/15 Status: Orderedindomethacin 0 Refill(s) Start Date: 05/08/15 Status: OrderedLopid 600 mg oral tablet See Instructions, TAKE ONE TABLET BY MOUTH TWICE A DAY, # 180 tabs, 1 Refill(s) , eRx: [facility] #[id number], TAKE ONE TABLET BY MOUTH TWICE A DAY Start Date: 01/22/15 Status: OrderedmetFORMIN 1000 mg oral tablet See Instructions, TAKE ONE TABLET BY MOUTH TWICE A DAY, # 60 tabs, 1 Refill(s), eRx: [facility] #[id number], TAKE ONE TABLET BY MOUTH TWICE A [...] [0.80-3.30 THOUS] 2.09 THOUS (12/28/14 4:02 PM) [place] Absolute [0.30-1.00 THOUS] 0.61 THOUS (12/28/14 4:02 [...] days, # 60 caps, 3 Refill(s), Pharmacy: [facility] #[id number], 1 caps Oral BID,x30 days
--- OUTSIDE RECORDS SUMMARY | 2018-01-05 11:24 | External Medical Summary | Referral Summary ---
:1960 Author Organization [facility] Address [address] [place] [address] [place] [address] Care Team Providers Name Role Phone Roman Palomo Primary Care Physician Encounter VC Date(s): 04/10/16 - 04/10/16 [facility] [address] [place] [address] Discharge Disposition: 01-Home or Self Care Attending Physician: Roman Palomo DO Admitting Physician: Roman Palomo DO Vital Signs Most recent to oldest [Reference Range]: 1 Temperature Tympanic [36.6-38.1 degC] 36.1 degC *LOW* (04/10/16 2:57 PM) Peripheral Pulse Rate [60-100 bpm] 88 bpm (04/10/16 2:57 PM) Blood Pressure [90-140/60-90 mmHg] 147/88 mmHg *HI* (04/10/16 2:57 PM) Problem List Condition Effective Dates Status Health Status Informant Diabetes mellitus type 2(Confirmed) Active Gout (disorder)(Confirmed) Active High cholesterol(Confirmed) Active Pure hypercholesterolemia Active (disorder)(Confirmed) Allergies, Adverse Reactions, Alerts No Known Medication Allergies Medications allopurinol 300 mg oral tablet 300 mg 1 tabs, Oral, Daily, # 30 tabs, 1 Refill(s), Pharmacy: [facility] # [id number], 1 tabs Oral Daily Start Date: 03/06/16 Status: OrderedContour test strips Contour test strips, See Instructions, check blood sugar fasting and 2 hours after meals., # 100 Each, 1 Refill(s), Pharmacy: [facility] #[id number], check blood sugar fasting and 2 hours after meals. Start Date: 01/01/15 Status: OrderedCONTOUR TEST STRIPS See Instructions, CHECK BLOOD SUGARS FASTING AND 2 HOURS AFTER MEALS EVERY OTHER DAY, # 100 strip, 1Refill(s), eRx: [facility] #[id number], CHECK BLOOD SUGARS FASTING AND 2 HOURS AFTER MEALS EVERY OTHER DAY Start Date: 05/27/15 Status: OrderedCONTOUR TEST STRIPS See Instructions, CHECK BLOOD SUGARS FASTING AND 2 HOURS AFTER MEALS EVERY OTHER DAY, # 100 strip, 1Refill(s), eRx: [facility] #[id number], CHECK BLOOD SUGARS FASTING AND 2 HOURS AFTER MEALS EVERY OTHER DAY Start Date: 02/18/15 Status: OrderedglipiZIDE 5 mg oral tablet See Instructions, TAKE ONE TABLET BY MOUTH TWICE A DAY, # 60 tabs, 2 Refill(s), eRx: [facility] #[id number], TAKE ONE TABLET BY MOUTH TWICE A DAY Start Date: 03/03/16 Status: OrderedLopid 600 mg oral tablet 600 mg 1 tabs, Oral, BID, X 30 days, # 60 tabs, 6 Refill(s), Pharmacy: [facility] #[id number], 1 tabs Oral BID,x30 days Start Date: 11/29/15 Stop Date: 06/26/16 Status: OrderedmetFORMIN Oral, 0 Refill(s) Start Date: 01/18/16 Status: Ordered Results Chemistry Most recent to oldest [Reference Range]: 1 Estimated Creatinine Clearance 87.32 mL/min (04/10/16 3:02 PM) Immunizations No data available for this section Procedures Procedure Date Related Diagnosis Body Site Colonoscopy1 03/07/09 Rectal under anesthesia, part. fistulotomy with 03/07/09 placement of 1Colonoscopy within normal limits. 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 Plan repeat colonoscopy in 10 years (03/07/2019) Social History Social History Type Response Smoking Status Former smoker Assessment and Plan No data available for this section
--- OUTSIDE RECORDS SUMMARY | 2018-01-05 11:24 | External Medical Summary | Referral Summary ---
:1960 Author [facility] Address [address] [place] [address] [place] [address] Care Team Providers Name Role Phone Roman Palomo Primary Care Physician Encounter VC Date(s): 04/21/16 - 04/21/16 [facility] [address] [place] [phone] [place] Discharge Disposition: 01-Home or Self Care Attending Physician: Roman Palomo DO Admitting Physician: Roman Palomo DO Vital Signs Most recent to oldest [Reference Range]: 1 Temperature Tympanic [36.6-38.1 degC] 36.5 degC *LOW* (04/21/16 4:06 PM) Peripheral Pulse Rate [60-100 bpm] 80 bpm (04/21/16 4:06 PM) Blood Pressure [90-140/60-90 mmHg] 147/78 mmHg *HI* (04/21/16 4:06 PM) Problem List Condition Effective Dates Status Health Status Informant Diabetes mellitus type 2(Confirmed) Active Gout (disorder)(Confirmed) Active High cholesterol(Confirmed) Active Pure hypercholesterolemia Active (disorder)(Confirmed) Allergies, Adverse Reactions, Alerts No Known Medication Allergies Medications allopurinol 300 mg oral tablet 300 mg 1 tabs, Oral, Daily, # 30 tabs, 1 Refill(s), Pharmacy: [facility] # [id number], 1 tabs Oral Daily Start Date: 03/06/16 Status: OrderedContour test strips Contour test strips, See Instructions, check blood sugar fasting and 2 hours after meals., # 100 Each, 1 Refill(s), Pharmacy: [facility] #[id number], check blood sugar fasting and 2 hours after meals. Start Date: 01/01/15 Status: OrderedCONTOUR TEST STRIPS See Instructions, CHECK BLOOD SUGARS FASTING AND 2 HOURS AFTER MEALS EVERY OTHER DAY, # 100 strip, 1Refill(s), eRx: [facility] #[id number], CHECK BLOOD SUGARS FASTING AND 2 HOURS AFTER MEALS EVERY OTHER DAY Start Date: 05/27/15 Status: OrderedCONTOUR TEST STRIPS See Instructions, CHECK BLOOD SUGARS FASTING AND 2 HOURS AFTER MEALS EVERY OTHER DAY, # 100 strip, 1Refill(s), eRx: [facility] #[id number], CHECK BLOOD SUGARS FASTING AND 2 HOURS AFTER MEALS EVERY OTHER DAY Start Date: 02/18/15 Status: OrderedglipiZIDE 5 mg oral tablet See Instructions, TAKE ONE TABLET BY MOUTH TWICE A DAY, # 60 tabs, 2 Refill(s), eRx: [facility] #[id number], TAKE ONE TABLET BY MOUTH TWICE A DAY Start Date: 03/03/16 Status: Orderedindomethacin 50 mg oral capsule 50 mg 1 caps, Oral, BID, as needed for gout pain, # 60 caps, 0 Refill(s), Pharmacy: [facility]#[id number], 1 caps Oral BID,x30 days,PRN:as needed for gout pain Start Date: 04/21/16 Stop Date: 05/21/16 Status: OrderedLopid 600 mg oral tablet 600 mg 1 tabs, Oral, BID, X 30 days, # 60 tabs, 6 Refill(s), Pharmacy: [facility] #[id number], 1 tabs Oral BID,x30 days Start Date: 11/29/15 Stop Date: 06/26/16 Status: OrderedmetFORMIN Oral, 0 Refill(s) Start Date: 01/18/16 Status: OrderedpredniSONE 20 mg oral tablet 20 mg 1 tabs, Oral, BID, X 10 days, # 20 tabs, 0 Refill(s), Pharmacy: [facility] #[id number], 1 tabs Oral BID,x10 days Start Date: 04/15/16 Stop Date: 04/25/16 Status: OrderedtraMADol 50 mg oral tablet 50 mg 1 tabs, Oral, q6hr, as needed for pain, # 30 tabs, 0 Refill(s) Start Date: 04/14/16 Stop Date: 04/28/16 Status: Ordered Results No data available for [...] Visit Note Author: Roman Palomo DO Date: 04/21/16 Assessment/Plan Acute gout 1. 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 2. Continue with Ultram as needed for pain. 3. Discontinue prednisone for now. 4. May restart taking indomethacin one tablet twice a day until symptoms resolve. 5. Follow-up when he gets back from vacation for renal functionand uric acid assessment. 6. We will refill his Ultram if he runs out of it before goingon vacation. Ordered: indomethacin, 50 mg 1 caps, Oral, BID, as needed for gout pain, # 60 caps, 0 Refill(s), Pharmacy: [facility] #[id number], 1 caps Oral BID,x30 days,PRN:as needed for gout pain Office Visit Level 4 Est 35484
--- OUTSIDE RECORDS SUMMARY | 2018-01-05 11:24 | External Medical Summary | Referral Summary ---
:1960 Author Organization [facility] [address] [place] [address], Family Medicine Address [address] [address] Care Team Providers Name Role Phone Paul Rodriguez Primary Care Physician Encounter VC Date(s): 04/01/17 - 04/01/17 [facility] [address] [place] [address], Family Medicine [address] [address] [place] Discharge Diagnosis: Mixed hyperlipidemia Discharge Diagnosis: DM2 (diabetes mellitus, type 2) Discharge Diagnosis: Gout (disorder) Discharge Disposition: 01-Home or Self Care Attending Physician: Paul Rodriguez DO Vital Signs Most recent to oldest [Reference Range]: 1 Peripheral Pulse Rate [60-100 bpm] 96 bpm (04/01/17 1:58 PM) Respiratory Rate [14-20 br/min] 16 br/min (04/01/17 1:58 PM) Blood Pressure [90-140/60-90 mmHg] 140/88 mmHg (04/01/17 1:58 PM) Problem List Condition Effective Dates Status Health Status Informant Diabetes mellitus type 2(Confirmed) Active High cholesterol(Confirmed) Active Gout (disorder)(Confirmed) Active Pure hypercholesterolemia Active (disorder)(Confirmed) Allergies, Adverse Reactions, Alerts No Known Medication Allergies Medications allopurinol 300 mg oral tablet See Instructions, TAKE ONE TABLET BY MOUTH DAILY, # 30 tabs, 3 Refill(s), eRx: [facility] #[id number] Start Date: 12/30/16 Status: Orderedcolchicine 0.6 mg oral tablet See Instructions, TAKE ONE TABLET BY MOUTH DAILY, # 30 tabs, eRx: [facility] #[id number] Start Date: 11/02/16 Status: OrderedContour test strips Contour test strips, See Instructions, check blood sugar fasting and 2 hours after meals., # 100 Each, 1 Refill(s), Pharmacy: [facility] #[id number], check blood sugar fasting and 2 hours after meals. Start Date: 01/01/15 Status: OrderedCONTOUR TEST STRIPS See Instructions, CHECK BLOOD SUGARS FASTING AND 2 HOURS AFTER MEALS EVERY OTHER DAY, # 100 strip, 1Refill(s), eRx: [facility] #[id number], CHECK BLOOD SUGARS FASTING AND 2 HOURS AFTER MEALS EVERY OTHER DAY Start Date: 05/27/15 Status: OrderedCONTOUR TEST STRIPS See Instructions, CHECK BLOOD SUGARS FASTING AND 2 HOURS AFTER MEALS EVERY OTHER DAY, # 100 strip, 1Refill(s), eRx: [facility] #[id number], CHECK BLOOD SUGARS FASTING AND 2 HOURS AFTER MEALS EVERY OTHER DAY Start Date: 02/18/15 Status: Ordereddiclofenac 1% topical gel 4 g, Topical, QID, not to exceed 16 grams/day/single joint of lower extremities , # 300 g, 0 Refill(s), Pharmacy: [facility] #[id number] Start Date: 05/14/16 Status: Orderedgemfibrozil 600 mg oral tablet See Instructions, TAKE ONE TABLET BY MOUTH TWICE A DAY, # 60 tabs, 5 Refill(s), eRx: [facility] #[id number], TAKE ONE TABLET BY MOUTH TWICE A DAY Start Date: 12/01/16 Status: OrderedglipiZIDE 5 mg oral tablet See Instructions, TAKE ONE TABLET BY MOUTH TWICE A DAY, # 60 tabs, 2 Refill(s), eRx: [facility] #[id number], TAKE ONE TABLET BY MOUTH TWICE A DAY Start Date: 03/03/16 Status: Orderedindomethacin 50 mg oral capsule 50 mg 1 caps, Oral, BID, as needed for gout pain, # 60 caps, 0 Refill(s), Pharmacy: [facility]#[id number], 1 caps Oral BID,x30 days,PRN:as needed for gout pain Start Date: 04/21/16 Stop Date: 05/21/16 Status: OrderedmetFORMIN 1000 mg oral tablet See Instructions, TAKE ONE TABLET BY MOUTH TWICE A DAY, # 60 tabs, 5 Refill(s), eRx: [facility] #[id number], TAKE ONE TABLET BY MOUTH TWICE A DAY Start Date: 12/01/16 Status: Ordered Results Hematology Most recent to oldest [Reference Range]: 1 WBC [4.8-10.8 10*3/uL] 7.0 10*3/uL (04/01/17 3:07 PM) RBC [4.60-6.20] 5.02 (04/01/17 3:07 PM) Hgb [14.0-18.0 gm/dL] 14.9 gm/dL (04/01/17 3:07 PM) Hct [42.0-52.0 %] 43.1 % (04/01/17 3:07 PM) MCV [82.0-99.0 fL] 85.9 fL (04/01/17 3:07 PM) MCH [27.0-32.0 pg] 29.7 pg (04/01/17 3:07 PM) MCHC [32.0-36.0 gm/dL] 34.6 gm/dL (04/01/17 3:07 PM) RDW [11.5-14.5 %] 13.2 % (04/01/17 3:07 PM) Platelet [150-400 10*3/uL] 268 10*3/uL (04/01/17 3:07 PM) MPV [8.8-14.8 fL] 10.6 fL (04/01/17 3:07 PM) Immature Granulocytes [0.0-1.0 %] 0.3 % (04/01/17 3:07 PM) Neutrophils [51-75 %] 59 % (04/01/17 3:07 PM) Lymphocytes [20-46 %] 28 % (04/01/17 3:07 PM) Monocytes [4-11 %] 10 % (04/01/17 3:07 PM) Eosinophils [0-4 %] 2 % (04/01/17 3:07 PM) Basophils [0-2 %] 0 % (04/01/17 3:07 PM) Neutro Absolute [1.90-7.00] 4.15 (04/01/17 3:07 PM) Lymph Absolute [0.80-3.30] 1.99 (04/01/17 3:07 PM) Pope Absolute [0.30-1.00] 0.68 (04/01/17 3:07 PM) Eos Absolute [0.00-0.50] 0.13 (04/01/17 3:07 PM) Baso Absolute [0.00-0.20] 0.03 (04/01/17 3:07 PM) Chemistry Most recent to oldest [Reference Range]: 1 Sodium Lvl [135-144 mEq/L] 138 mEq/L (04/01/17 3:07 PM) Potassium Lvl [3.5-5.2 mEq/L] 3.9 mEq/L (04/01/17 3:07 PM) Chloride [99-111 mEq/L] 104 mEq/L (04/01/17 3:07 PM) CO2 [23-31 mEq/L] 23 mEq/L (04/01/17 3:07 PM) AGAP [3-20 mEq/L] 11 mEq/L (04/01/17 3:07 PM) BUN [8-26 mg/dL] 17 mg/dL (04/01/17 3:07 PM) Glucose Lvl [70-99 mg/dL] 164 mg/dL *HI* (04/01/17 3:07 PM) Creatinine Lvl [0.72-1.25 mg/dL] 1.03 mg/dL (04/01/17 3:07 PM) eGFR [>60 mL/min] >60 mL/min 1 (04/01/17 3:07 PM) Calcium Lvl [8.4-10.2 mg/dL] 9.8 mg/dL (04/01/17 3:07 PM) Albumin Lvl [3.5-5.0 gm/dL] 4.4 gm/dL (04/01/17 3:07 PM) Total Protein [6.1-7.7 gm/dL] 7.2 gm/dL (04/01/17 3:07 PM) Globulin [1.8-4.0 gm/dL] 2.8 gm/dL (04/01/17 3:07 PM) ALT [0-55 U/L] 18 U/L (04/01/17 3:07 PM) AST [5-34 U/L] 20 U/L (04/01/17 3:07 PM) Alk Phos [40-150 U/L] 72 U/L (04/01/17 3:07 PM) Bili Total [0.2-1.2 mg/dL] 0.4 mg/dL (04/01/17 3:07 PM) Chol [0-199 mg/dL] 181 mg/dL (04/01/17 3:07 PM) Trig [0-149 mg/dL] 650 mg/dL 2 *HI* (04/01/17 3:07 PM) HDL [40-84 mg/dL] 31 mg/dL *LOW* (04/01/17 3:07 PM) LDL [0-130] INVALID (04/01/17 3:07 PM) VLDL Cholesterol [0-28] INVALID (04/01/17 3:07 PM) Cardiac Risk [0.0-5.7] 5.8 *HI* (04/01/17 3:07 PM) PSA Total with Reflex Free [0.0-3.5 ng/mL] 1.8 ng/mL 3 (04/01/17 3:07 PM) TSH with Reflex Free T4 [0.35-4.94] 1.99 (04/01/17 3:07 PM) Hgb A1c [4.1-5.6 %] 8.7 % *HI* (04/01/17 3:07 PM) eAvg Glucose 203.0 mg/dL (04/01/17 3:07 PM) 1Result Comment: Multiply eGFR results by 1.21 for race.2Result Comment: LDL and VLDL are invalid with Triglyceride greater than 400.3Result Comment: AUA PSA Best Practice Guidelines: Age-Adjusted PSA Values by Ethnic Group Age Range Asians - Caucasians Americans 40-49 0-2.0 0-2.0 0-2.5 50-59 0-3.0 0-4.0 0-3.5 60-69 0-4.0 0-4.5 0-4.5 70-79 0-5.0 0-5.5 0-6.5 Procedures Procedure Date Related Diagnosis Body Site Collection of venous blood by venipuncture 04/01/17 Colonoscopy1 03/07/09 Rectal under anesthesia, part. fistulotomy with 03/07/09 placement of 1Colonoscopy within normal limits. 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 Plan repeat colonoscopy in 10 years (03/07/2019) Social History Social History Type Response Smoking Status Former smoker Assessment and Plan Extracted from: Title: Ambulatory Patient Education Author: Paul Rodriguez DO Date: 04/01/17 Home Health Care Diabetes and Exercise Exercising [...] ti me. Your health care provider or nurse educator can help create an activity plan [...] care provider. Document Released: 11/05/2004 Document Revised: 12/31/2015 Document Reviewed: 01/23/2014 [employer] Interactive Patient Education 2016 [employer] No follow up information was provided. Extracted from: Title: DM/HLD/gout Author: Paul Rodriguez DO Date: 04/01/17 Impression and Plan Diagnosis DM2 (diabetes mellitus, type 2) ([id number]-[id number] E11.9, Discharge, Medical). Mixed hyperlipidemia ([id number]-KD E78.2, Discharge, Medical). Gout (disorder) ([id number] M10.09, Discharge, Medical). Plan: 1. diabetes -- cdm completed continue with diet and exercise continue with current meds lab today 2. HLD -- Decrease cholesterol and fats in diet cont. med. discussed [facility] effects of elevated lipds including HTN, PAD, CVA, [place]. LAB 3. continue with current meds for gout f/u with dr min , follow up in 3 months. Patient Instructions: Diabetes and Exercise, f/u in 3 months. Dx/Order Association Plan: .
--- OUTSIDE RECORDS SUMMARY | 2018-01-05 11:24 | External Medical Summary | Referral Summary ---
:1960 Author Organization [facility] [place] [address] Care Team Providers Name Role Phone Roman Palomo Primary Care Physician Encounter VC Date(s): 12/04/15 - 12/04/15 [facility] [place] [phone] [place] Discharge Diagnosis: Diabetes type 2, uncontrolled Discharge Disposition: 01-Home or Self Care Attending Physician: Roman Palomo DO Admitting Physician: Roman Palomo DO Vital Signs Most recent to oldest [Reference Range]: 1 Temperature Tympanic [36.6-38.1 degC] 36.2 degC *LOW* (12/04/15 1:46 PM) Peripheral Pulse Rate [60-100 bpm] 88 bpm (12/04/15 1:46 PM) Blood Pressure [90-140/60-90 mmHg] 148/90 mmHg *HI* (12/04/15 1:46 PM) Problem List Condition Effective Dates Status Health Status Informant Diabetes mellitus type 2(Confirmed) Active Gout (disorder)(Confirmed) Active High cholesterol(Confirmed) Active Pure hypercholesterolemia Active (disorder)(Confirmed) Allergies, Adverse Reactions, Alerts No Known Medication Allergies Medications allopurinol 100 mg oral tablet 100 mg 1 tabs, Oral, Daily, X 30 days, # 30 tabs, 6 Refill(s), Pharmacy: [facility] #[id number], 1tabs Oral Daily,x30 days Start Date: 11/29/15 Stop Date: 06/26/16 Status: OrderedContour test strips Contour test strips, See Instructions, check blood sugar fasting and 2 hours after meals., # 100 Each, 1 Refill(s), Pharmacy: [facility] #[id number], check blood sugar fasting and 2 hours after meals. Start Date: 01/01/15 Status: OrderedCONTOUR TEST STRIPS See Instructions, CHECK BLOOD SUGARS FASTING AND 2 HOURS AFTER MEALS EVERY OTHER DAY, # 100 strip, 1Refill(s), eRx: [facility] #[id number], CHECK BLOOD SUGARS FASTING AND 2 HOURS AFTER MEALS EVERY OTHER DAY Start Date: 05/27/15 Status: OrderedCONTOUR TEST STRIPS See Instructions, CHECK BLOOD SUGARS FASTING AND 2 HOURS AFTER MEALS EVERY OTHER DAY, # 100 strip, 1Refill(s), eRx: [facility] #[id number], CHECK BLOOD SUGARS FASTING AND 2 HOURS AFTER MEALS EVERY OTHER DAY Start Date: 02/18/15 Status: OrderedglipiZIDE 5 mg oral tablet 5 mg 1 tabs, Oral, BID, # 60 tabs, 2 Refill(s), Pharmacy: [facility] # [id number], 1 tabs Oral BID,x30 days Start Date: 12/04/15 Stop Date: 03/03/16 Status: Orderedindomethacin 0 Refill(s) Start Date: 05/08/15 Status: OrderedLopid 600 mg oral tablet 600 mg 1 tabs, Oral, BID, X 30 days, # 60 tabs, 6 Refill(s), Pharmacy: [facility] #[id number], 1 tabs Oral BID,x30 days Start Date: 11/29/15 Stop Date: 06/26/16 Status: OrderedmetFORMIN 1000 mg oral tablet 1,000 mg 1 tabs, Oral, BID, X 30 days, # 60 tabs, 6 Refill(s), Pharmacy: [facility] #[id number], 1tabs Oral BID,x30 days Start Date: 11/29/15 Stop Date: 06/26/16 Status: Ordered Results No data available for [...] Visit Note Author: Roman Palomo DO Date: 12/04/15 Assessment/Plan Diabetes type 2, uncontrolled 1. His hemoglobin A1c was 7.6 indicating that his blood sugars have been poorly controlled. 2. With his creatinine being 1.5, we stopped the metformin today. 3. He was started on glipizide 5 mg twice a day. 4. Continue checking blood sugars 3 times per week and follow-up in one month for reevaluation. 5. If his numbers does not improve then we may consider starting basal insulin. Ordered: Office Visit Level 4 Est 35570 DM type 2 causing CKD stage 3 1. Metformin was discontinued. 2. Recheck renal function in one month. If his renal function does not improve or if it worsens then we may refer him to nephrology. Ordered: glipiZIDE, 5 mg 1 tabs, Oral, BID, # 60 tabs, 2 Refill(s), Pharmacy: [facility] #[id number], 1 tabs Oral BID,x30 days Office Visit Level 4 Est 89996 Gout (disorder) 1. Low protein diet recommended. 2. Tinea with allopurinol 100 mg daily. 3. Repeat uric acid in one month. If his renal function improves then we may increase the allopurinol to 200 or 300 mg daily. Ordered: Office Visit Level 4 Est 27576 Orders: Basic Metabolic Panel Uric Acid
--- OUTSIDE RECORDS SUMMARY | 2018-01-05 11:25 | External Medical Summary | Referral Summary ---
:1960 Author Organization [facility], Rheumatology Address [address] [place] [address] [place] [address] Care Team Providers Name Role Phone Roman Palomo Primary Care Physician Encounter VC Date(s): 08/06/16 - 08/06/16 [facility], Rheumatology [address] [place] [address] [place] [phone] [place] Discharge Diagnosis: Medication management Discharge Diagnosis: Gouty arthritis Discharge Disposition: 01-Home or Self Care Attending Physician: Britt Schwarz MD Admitting Physician: Britt Schwarz MD Vital Signs Most recent to oldest [Reference Range]: 1 Peripheral Pulse Rate [60-100 bpm] 64 bpm (08/06/16 4:55 PM) Blood Pressure [90-140/60-90 mmHg] 144/81 mmHg *HI* (08/06/16 4:55 PM) Problem List Condition Effective Dates Status Health Status Informant Diabetes mellitus type 2(Confirmed) Active Gout (disorder)(Confirmed) Active High cholesterol(Confirmed) Active Pure hypercholesterolemia Active (disorder)(Confirmed) Allergies, Adverse Reactions, Alerts No Known Medication Allergies Medications allopurinol 100 mg oral tablet See Instructions, TAKE ONE TABLET BY MOUTH DAILY (to take with 300 mg), # 30 tabs, 2 Refill(s), Pharmacy: [facility] #[id number], TAKE ONE TABLET BY MOUTH DAILY (to take with 300 mg) Start Date: 08/06/16 Status: Orderedallopurinol 300 mg oral tablet See Instructions, TAKE ONE TABLET BY MOUTH DAILY (to take with 100 mg), # 30 tabs, 2 Refill(s), Pharmacy: [facility] #[id number], TAKE ONE TABLET BY MOUTH DAILY (to take with 100 mg) Start Date: 08/06/16 Status: OrderedColcrys 0.6 mg oral tablet 0.6 mg 1 tabs, Oral, Daily, # 30 tabs, 2 Refill(s), Pharmacy: [facility] # [id number] Start Date: 08/06/16 Status: OrderedContour test strips Contour test strips, See Instructions, check blood sugar fasting and 2 hours after meals., # 100 Each, 1 Refill(s), Pharmacy: [facility] #[id number], check blood sugar fasting and 2 hours after meals. Start Date: 01/01/15 Status: OrderedCONTOUR TEST STRIPS See Instructions, CHECK BLOOD SUGARS FASTING AND 2 HOURS AFTER MEALS EVERY OTHER DAY, # 100 strip, 1Refill(s), eRx: [facility] #[id number], CHECK BLOOD SUGARS FASTING AND 2 HOURS AFTER MEALS EVERY OTHER DAY Start Date: 05/27/15 Status: OrderedCONTOUR TEST STRIPS See Instructions, CHECK BLOOD SUGARS FASTING AND 2 HOURS AFTER MEALS EVERY OTHER DAY, # 100 strip, 1Refill(s), eRx: [facility] #[id number], CHECK BLOOD SUGARS FASTING AND 2 HOURS AFTER MEALS EVERY OTHER DAY Start Date: 02/18/15 Status: Ordereddiclofenac 1% topical gel 4 g, Topical, QID, not to exceed 16 grams/day/single joint of lower extremities , # 300 g, 0 Refill(s), Pharmacy: [facility] #[id number] Start Date: 05/14/16 Status: OrderedglipiZIDE 5 mg oral tablet See Instructions, TAKE ONE TABLET BY MOUTH TWICE A DAY, # 60 tabs, 2 Refill(s), eRx: [facility] #[id number], TAKE ONE TABLET BY MOUTH TWICE A DAY Start Date: 03/03/16 Status: Orderedindomethacin 50 mg oral capsule 50 mg 1 caps, Oral, BID, as needed for gout pain, # 60 caps, 0 Refill(s), Pharmacy: [facility]#[id number], 1 caps Oral BID,x30 days,PRN:as needed for [...] Visit Note Author: Britt Schwarz MD Date: 08/06/16 Assessment/Plan 1.Gouty arthritis We will continue allopurinol 400 mg and colchicine 0.6 mg daily. We willplan oncontinuing thecolchicine for6 months. 2.Medication management I will recheck his blood counts liver tests prior tonext appointment. They otherwise were stable when checked Follow-up in 3 months or sooner if needed.
--- OUTSIDE RECORDS SUMMARY | 2018-01-05 11:25 | External Medical Summary | Continuity of Care Document ---
:1960 Author Organization [facility] Allergies Active Description Code Type Severity Reaction Onset Reported/ Identified Relationship Clinical to Patient Status Yes No Known Drug 12/21/2012 Allergies Aller gy Yes No Known Drug N/A N/A 12/21/2012 Allergies Aller gy Yes No Known Drug 12/21/2012 Drug Aller Allergies gy Yes No Known Drug N/A N/A 12/21/2012 Drug Aller Allergies gy Yes No Known Food 12/21/2012 Food Aller Allergies gy Yes No Known Food N/A N/A 12/21/2012 Food Aller Allergies gy Yes No Known NKMA N/A N/A 07/30/2014 Medication Allergies Yes No Known NKMA N/A N/A 07/30/2014 Medication Allergies Medications Medication Packaging Start Date Stop Date Route Dosage Sig 04/17/2014 metFORMIN(metFOR 5 See MIN 1000 mg oral Instruction tablet) s, TAKE ONE TABLET BY MOUTH TWICE A DAY, 60 tabs 05/01/2014 gemfibrozil(Lopi 4 See d 600 mg oral Instruction tablet) s, TAKE ONE TABLET BY MOUTH TWICE A DAY, 180 tabs 05/16/2014 metFORMIN(metFOR 4 See MIN 1000 mg oral Instruction tablet) s, TAKE ONE TABLET BY MOUTH TWICE A DAY, 60 tabs 11/09/2014 metFORMIN(metFOR 5 See MIN 1000 mg oral Instruction tablet) s, TAKE ONE TABLET BY MOUTH TWICE A DAY, 60 tabs 1 caps 12/28/2014 Oral 50 mg indomethacin(ind 5 1 caps, omethacin 50 mg Oral, BID, oral capsule) 60 caps 1 tabs 12/31/2014 Oral 100 mg allopurinol(allo 5 1 tabs, purinol 100 mg Oral, oral tablet) Daily, 30 tabs 03/27/2015 allopurinol(allo 5 See purinol 100 mg Instruction oral tablet) s, TAKE ONE TABLET BY MOUTH DAILY, 30 tabs, 2 Refill(s) 05/08/2015 indomethacin(ind 6 0 Refill(s) omethacin) 1 tabs 11/29/2015 Oral 1,000 mg metFORMIN(metFOR 6 1,000 mg=1 MIN 1000 mg oral tabs, Oral, tablet) BID, for 30 days, 60 tabs, 6 Refill(s) 1 tabs 11/29/2015 Oral 600 mg gemfibrozil(Lopi 6 600 mg=1 d 600 mg oral tabs, Oral, tablet) BID, for 30 days, 60 tabs, 6 Refill(s) 1 tabs 11/29/2015 Oral 100 mg allopurinol(allo 6 100 mg=1 purinol 100 mg tabs, Oral, oral tablet) Daily, for 30 days, 30 tabs, 6 Refill(s) 1 tabs 12/04/2015 Oral 5 mg glipiZIDE(glipiZ 6 5 mg=1 LUCILLE 5 mg oral tabs, Oral, tablet) BID, for 30 days, 60 tabs, 2 Refill(s) 1 tabs 01/03/2016 Oral 0.6 mg colchicine(colch 6 0.6 mg=1 icine 0.6 mg tabs, Oral, oral tablet) q1hr, PRN: as needed for gout pain, 10 tabs, 0 Refill(s) 01/18/2016 Oral 1,000 mg metFORMIN(metFOR 7 1,000 mg, MIN) Oral, BID, 0 Refill(s) 1 tabs 01/18/2016 Oral HYDROcodone-acet 6 1 tabs, aminophen([place] Oral, q4hr, 5 mg-325 mg oral for 3 days, tablet) PRN: as needed for pain, 10 tabs, 0 Refill(s) 03/03/2016 glipiZIDE(glipiZ See LUCILLE 5 mg oral Instruction tablet) s, TAKE ONE TABLET BY MOUTH TWICE A DAY, 60 tabs, 2 Refill(s) 3 tabs 03/04/2016 Oral 60 mg predniSONE(predn 6 60 mg=3 iSONE 20 mg oral tabs, Oral, tablet) Daily, for 5 days, 15 tabs, 0 Refill(s) 1 caps 04/21/2016 Oral 50 mg indomethacin(ind 6 50 mg=1 omethacin 50 mg caps, Oral, oral capsule) BID, for 30 days, PRN: as needed for gout pain, 60 caps, 0 Refill(s) 1 tabs 05/14/2016 Oral 100 mg allopurinol(allo 6 100 mg=1 purinol 100 mg tabs, Oral, oral tablet) Daily, to take with the 300 mg tab, 30 tabs, 2 Refill(s) 1 tabs 05/14/2016 Oral 0.6 mg colchicine(Colcr 6 0.6 mg=1 ys 0.6 mg oral tabs, Oral, tablet) Daily, 30 tabs, 2 Refill(s) 05/14/2016 allopurinol(allo 6 See purinol 300 mg Instruction oral tablet) s, TAKE ONE TABLET BY MOUTH DAILY, 30 tabs, 2 Refill(s) 05/14/2016 Topical 4 g diclofenac 4 g, topical(diclofen Topical, ac 1% QID, not to topical gel) exceed 16 grams/day/s luz joint of lower extremities , 300 g, 0 Refill(s) 08/06/2016 allopurinol(allo 6 See purinol 300 mg Instruction oral tablet) s, TAKE ONE TABLET BY MOUTH DAILY (to take with 100 mg), 30 tabs, 2 Refill(s) 1 tabs 08/06/2016 Oral 0.6 mg colchicine(Colcr 6 0.6 mg=1 ys 0.6 mg oral tabs, Oral, tablet) Daily, 30 tabs, 2 Refill(s) 08/06/2016 allopurinol(allo 6 See purinol 100 mg Instruction oral tablet) s, TAKE ONE TABLET BY MOUTH DAILY (to take with 300 mg), 30 tabs, 2 Refill(s) 08/11/2016 colchicine(colch 7 See icine 0.6 mg Instruction oral tablet) s, TAKE ONE TABLET BY MOUTH DAILY, 30 tabs, 3 Refill(s) 08/11/2016 allopurinol(allo 7 See purinol 100 mg Instruction oral tablet) s, TAKE ONE TABLET BY MOUTH DAILY ALONG WITH THE 300 MG TABLET, 30 tabs, 3 Refill(s) 11/02/2016 allopurinol(allo 7 See purinol 100 mg Instruction oral tablet) s, TAKE ONE TABLET BY MOUTH DAILY, ALONG WITH A 300MG TABLET, 30 tabs 11/02/2016 colchicine(colch See icine 0.6 mg Instruction oral tablet) s, TAKE ONE TABLET BY MOUTH DAILY, 30 tabs 11/02/2016 allopurinol(allo 7 See purinol 300 mg Instruction oral tablet) s, TAKE ONE TABLET BY MOUTH DAILY, 30 tabs tabs 11/26/2016 Oral mg allopurinol(allo 7 mg=tabs, purinol 100 mg Oral, oral tablet) Daily, 0 Refill(s) 12/01/2016 metFORMIN(metFOR See MIN 1000 mg oral Instruction tablet) s, TAKE ONE TABLET BY MOUTH TWICE A DAY, 60 tabs, 5 Refill(s) 12/01/2016 gemfibrozil(gemf See ibrozil 600 mg Instruction oral tablet) s, TAKE ONE TABLET BY MOUTH TWICE A DAY, 60 tabs, 5 Refill(s) 1 tabs 04/05/2017 Oral 100 mg sitaGLIPtin(Alexis 7 100 mg=1 via 100 mg oral tabs, Oral, tablet) Daily, 30 tabs, 2 Refill(s) 06/10/2017 colchicine(Colcr See ys 0.6 mg oral Instruction tablet) s, TAKE ONE TABLET BY MOUTH DAILY, 30 tabs, 5 Refill(s) 06/10/2017 allopurinol(allo See purinol 300 mg Instruction oral tablet) s, TAKE ONE TABLET BY MOUTH DAILY, 30 tabs, 5 Refill(s) 06/10/2017 allopurinol(allo See purinol 100 mg Instruction oral tablet) s, TAKE ONE TABLET BY MOUTH DAILY ALONG WITH THE 300 MG TABLET, 30 tabs, 5 Refill(s) 07/02/2017 sitaGLIPtin(Alexis See via 100 mg oral Instruction tablet) s, TAKE ONE TABLET BY MOUTH DAILY, 30 tabs, 5 Refill(s) 08/17/2017 metFORMIN(metFOR See MIN 1000 mg oral Instruction tablet) s, TAKE ONE TABLET BY MOUTH TWICE A DAY, 60 tabs, 5 Refill(s) 08/17/2017 gemfibrozil(gemf See ibrozil 600 mg Instruction oral tablet) s, TAKE ONE TABLET BY MOUTH TWICE A DAY, 60 tabs, 2 Refill(s) 11/11/2017 gemfibrozil(gemf 8 See ibrozil 600 mg Instruction oral tablet) s, TAKE ONE TABLET BY MOUTH TWICE A DAY, 60 tabs, 1 Refill(s) 11/15/2017 gemfibrozil(gemf See ibrozil 600 mg Instruction oral tablet) s, TAKE ONE TABLET BY MOUTH TWICE A DAY, 60 tabs, 1 Refill(s) 12/17/2017 allopurinol(allo See purinol 300 mg Instruction oral tablet) s, TAKE ONE TABLET BY MOUTH DAILY, 30 tabs, 5 Refill(s) 12/17/2017 allopurinol(allo See purinol 100 mg Instruction oral tablet) s, TAKE ONE TABLET BY MOUTH DAILY ALONG WITH THE 300 MG TABLET, 30 tabs, 5 Refill(s) Problems Date Dx Attending Type Code Diagnosis Diagnosed By Coded 12/21/2012 Marlen AMIN, Admitting 729.5 PAIN IN LIMB Anurag S 12/21/2012 Marlen AMIN, Final 882.0 OPEN WOUND HAND Anurag S 12/21/2012 Marlen AMIN, External E849.0 HOME ACCIDENTS Anurag S 12/21/2012 Marlen AMIN, External E906.0 DOG BITE Anurag S 01/03/2016 Roman Palomo Final E11.9 Type 2 diabetes mellitus without complications 01/03/2016 Roman Palomo Final I10 Essential (primary) hypertension 01/03/2016 Roman Palomo Final N17.8 Other acute kidney failure 01/03/2016 Roman Palomo Final N28.9 Disorder of kidney and ureter, unspecified 01/18/2016 Colleen Alvarez Final M25.561 Pain in right knee L 01/28/2016 F 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 01/28/2016 F S89.81XA Other specified injuries of right lower leg, initial encounter 03/04/2016 Roman Palomo Final M19.90 Unspecified osteoarthritis, unspecified site 03/04/2016 Roman Palomo Final 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, left ankle and foot, without tophus (tophi) 03/10/2016 F 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 03/16/2016 Roman Palomo Final M25.571 Pain in right ankle and joints of right foot 03/16/2016 Roman Palomo Final M25.50 Pain in unspecified joint 05/14/2016 Britt Schwarz Final M10.9 Gout, unspecified 05/14/2016 Britt Schwarz Final Z79.899 Other skilled nursing (current) drug therapy 08/06/2016 Britt Schwarz Final M10.9 Gout, unspecified 08/06/2016 Britt Schwarz Final Z79.899 Other skilled nursing (current) drug therapy 10/16/2016 Roman Palomo Final E11.9 Type 2 diabetes mellitus without complications 10/16/2016 Roman Palomo M1A.9XX0 Chronic gout, unspecified, without tophus (tophi) 11/26/2016 Britt Schwarz Final 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, multiple sites 11/26/2016 Britt Schwarz Final Z79.899 Other skilled nursing (current) drug therapy 03/16/2017 W H52.13 Myopia, bilateral 03/16/2017 W H52.223 Regular astigmatism, bilateral 03/16/2017 W H52.4 Presbyopia 03/18/2017 W E11.9 Type 2 diabetes mellitus without complications 03/18/2017 W H52.13 Myopia, bilateral 03/18/2017 W H52.223 Regular astigmatism, bilateral 03/18/2017 W H52.4 Presbyopia 03/19/2017 W E11.9 Type 2 diabetes mellitus without complications 03/19/2017 W H52.13 Myopia, bilateral 03/19/2017 W H52.223 Regular astigmatism, bilateral 03/19/2017 W H52.4 Presbyopia 03/23/2017 W E11.9 Type 2 diabetes mellitus without complications 03/23/2017 W H52.13 Myopia, bilateral 03/23/2017 W H52.223 Regular astigmatism, bilateral 03/23/2017 W H52.4 Presbyopia 04/01/2017 Paul Rodriguez Final E11.9 Type 2 diabetes B mellitus without complications 04/01/2017 Paul Rodriguez Final E78.2 Mixed hyperlipidemia B 04/01/2017 Paul Rodriguez Final 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, B multiple sites 06/10/2017 Britt Schwarz Final 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, multiple sites 06/10/2017 Britt Schwarz Final Z79.899 Other skilled nursing (current) drug therapy 07/16/2017 Paul Rodriguez Final E11.9 Type 2 diabetes B mellitus without complications 07/16/2017 Paul Rodriguez Final E78.2 Mixed hyperlipidemia B 07/16/2017 Paul Rodriguez Final M79.9 Soft tissue B disorder, unspecified 10/29/2017 Paul Rodriguez Final E11.9 Type 2 diabetes B mellitus without complications 10/29/2017 Paul Rodriguez Final E66.8 Other obesity B 10/29/2017 Paul Rodriguez Final E78.2 Mixed hyperlipidemia B 10/29/2017 Paul Rodriguez Final R68.82 Decreased libido B 12/07/2017 Annabelle Hernandez Final E11.9 Type 2 diabetes E mellitus without complications 12/07/2017 Annabelle Hernandez Final E66.9 Obesity, unspecified E Procedures Code Description [place] [address] Office or 01/03/2016 other outpatient visit for the evaluation and management of an established patient, which requires at least 2 of these 3 jara components: A detailed history; A detailed examination; Medical d 12469 Radiologic 01/18/2016 examination, knee; complete, 4 or more views 45682 Comprehensive 01/18/2016 metabolic panel This panel must include the following: Albumin (29615) Bilirubin, total (35323) Calcium, total (52073) Carbon dioxide (bicarbonate) (22095) Chloride (00718) Creatinine (8 18965 Uric acid; 01/18/2016 blood 48794 Office or 01/18/2016 other outpatient visit for the evaluation and management of an established patient, which requires at least 2 of these 3 jara components: An expanded problem focused history; An expanded prob 54311 haskJared real 01/28/2016 INJECTION/ASPIRATION, JOINT/BURSA, KARLOS 17143 Knee 4V WB ProhaskJared real 01/28/2016 02673 MRI LE W/Jt ProhaskJared real 01/28/2016 W/O Contrast J0702 Celestone 3mg Jared Hart 01/28/2016 71987 Collection of 03/04/2016 venous blood by venipuncture 55769 Radiologic 03/04/2016 examination, ankle; complete, minimum of 3 views 05977 Basic 03/04/2016 metabolic panel (Calcium, total) This panel must include the following: Calcium, total (26785) Carbon dioxide (bicarbonate) (85814) Chloride (51585) Creatinine (77348) Glucose (99748) Potassium 81429 Uric acid; 03/04/2016 blood 34327 Office or 03/04/2016 other outpatient visit for the evaluation and management of an established patient, which requires at least 2 of these 3 jara components: A detailed history; A detailed examination; Medical d 28003 Office or 03/16/2016 other outpatient visit for the evaluation and management of an established patient, which requires at least 2 of these 3 jara components: An expanded problem focused history; An expanded prob 96662 Office or 04/10/2016 other outpatient visit for the evaluation and management of an established patient, which requires at least 2 of these 3 jara components: A detailed history; A detailed examination; Medical d 12840 Office or 04/21/2016 other outpatient visit for the evaluation and management of an established patient, which requires at least 2 of these 3 jara components: A detailed history; A detailed examination; Medical d 49309 Office or 05/14/2016 other outpatient visit for the evaluation and management of a new patient, which requires these 3 jara components: A detailed history; A detailed examination; Medical decision making of [place] c 86031 Office or 08/06/2016 other outpatient visit for the evaluation and management of an established patient, which requires at least 2 of these 3 jara components: An expanded problem focused history; An expanded prob 68956 Collection of 10/16/2016 venous blood by venipuncture 83461 Comprehensive 10/16/2016 metabolic panel This panel must include the following: Albumin (28686) Bilirubin, total (16429) Calcium, total (17797) Carbon dioxide (bicarbonate) (49741) Chloride (01385) Creatinine (8 25465 Lipid panel 10/16/2016 This panel must include the following: Cholesterol, serum, total (22597) Lipoprotein, direct measurement, high density cholesterol (HDL cholesterol) (06727) Triglycerides (12264)..... 42160 Hemoglobin; 10/16/2016 glycosylated (A1C) 32413 Uric acid; 10/16/2016 blood 05037 Blood count; 10/16/2016 complete (CBC), automated (Hgb, Hct, RBC, WBC and platelet count) and automated differential WBC count 80183 Office or 10/16/2016 other outpatient visit for the evaluation and management of an established patient, which requires at least 2 of these 3 jara components: A detailed history; A detailed examination; Medical d 94715 Office or 11/26/2016 other outpatient visit for the evaluation and management of an established patient, which requires at least 2 of these 3 jara components: An expanded problem focused history; An expanded prob 76593 EYE EXAM, NEW 03/16/2017 PATIENT 40671 REFRACTION 03/16/2017 85801 Office or 06/10/2017 other outpatient visit for the evaluation and management of an established patient, which requires at least 2 of these 3 jara components: An expanded problem focused history; An expanded prob 00996 Collection Of 07/09/2017 Venous Blood By Venipuncture 11344 Comprehensive 07/09/2017 metabolic panel This panel must include the following: Albumin (70219) Bilirubin, total (81048) Calcium, total (14456) Carbon dioxide (bicarbonate) (98006) Chloride (23672) Creatinine (8 08990 Hemoglobin; 07/09/2017 glycosylated (A1C) 59636 Office or 07/16/2017 other outpatient visit for the evaluation and management of an established patient, which requires at least 2 of these 3 jara components: A detailed history; A detailed examination; Medical d 21900 Collection Of 10/22/2017 Venous Blood By Venipuncture 31652 Comprehensive 10/22/2017 metabolic panel This panel must include the following: Albumin (49421) Bilirubin, total (53765) Calcium, total (82099) Carbon dioxide (bicarbonate) (74457) Chloride (62418) Creatinine (8 74408 Hemoglobin; 10/22/2017 glycosylated (A1C) 90079 Collection Of 10/29/2017 Venous Blood By Venipuncture 16918 Testosterone; 10/29/2017 free.. 01451 Testosterone; 10/29/2017 total.. 23806 Office or 10/29/2017 other outpatient visit for the evaluation and management of an established patient, which requires at least 2 of these 3 jara components: A detailed history; A detailed examination; Medical d 83652 Collection of 12/16/2017 venous blood by venipuncture 21322 Uric acid; 12/16/2017 blood 66411 Office or 12/16/2017 other outpatient visit for the evaluation and management of an established patient, which requires at least 2 of these 3 jara components: An expanded problem focused history; An expanded prob Results Test Result Range Comprehensive Metabolic Panel (CMP) - 01/18/16 13:26 Albumin 4.6 g/dL 3.5-5.0 Alkaline Phosphatase 75 U/L 40-150 ALT (SGPT) 14 U/L 0-55 Anion Gap 10 NA 3-20 AST (SGOT) 15 U/L 5-34 Bilirubin Total 0.7 mg/dL 0.2-1.2 BUN 17 mg/dL 8-26 Calcium 9.4 mg/dL 8.9-10.5 Chloride 106 mEq/L 99-111 CO2 22 mEq/L 23-31 Creatinine 1.00 mg/dL 0.72-1.25 Globulin 2.7 g/dL 1.8-4.0 Glucose 168 mg/dL 70-99 Potassium 4.0 mEq/L 3.5-5.2 Protein 7.3 g/dL 6.4-8.3 Sodium 138 mEq/L 135-144 Uric Acid - 01/18/16 13:26 Uric Acid 6.9 mg/dL 3.5-7.2 eGFR - 01/18/16 13:26 eGFR >60 mL/min >60 Uric Acid - 03/04/16 15:12 Uric Acid 8.0 mg/dL 3.5-7.2 Basic Metabolic Panel (BMP) - 03/04/16 15:12 Anion Gap 9 NA 3-20 BUN 14 mg/dL 8-26 Calcium 9.4 mg/dL 8.9-10.5 Chloride 108 mEq/L 99-111 CO2 23 mEq/L 23-31 Creatinine 1.14 mg/dL 0.72-1.25 Glucose 117 mg/dL 70-99 Potassium 4.1 mEq/L 3.5-5.2 Sodium 140 mEq/L 135-144 eGFR - 03/04/16 15:12 eGFR >60 mL/min >60 CBC With Platelet and Differential - 10/16/16 16:20 Absolute Basophils 0.02 10*3/uL 0.00-0.20 Absolute Eosinophils 0.16 10*3/uL 0.00-0.50 Absolute Lymphocytes 1.88 10*3/uL 0.80-3.30 Absolute Monocytes 0.52 10*3/uL 0.30-1.00 Absolute Neutrophils 2.74 10*3/uL 1.90-7.00 Basophils 0 % 0-2 Eosinophils 3 % 0-4 HCT 42.7 % 42.0-52.0 HGB 14.6 g/dL 14.0-18.0 Immature Granulocytes 0.2 % 0.0-1.0 Lymphocytes 35 % 20-46 MCH 29.4 pg 27.0-32.0 MCHC 34.2 g/dL 32.0-36.0 MCV 86.1 fL 82.0-99.0 Monocytes 10 % 4-11 MPV 10.3 fL 8.8-14.8 Neutrophils 51 % 51-75 Platelet Count 231 K/uL 150-400 RBC 4.96 10*6/uL 4.60-6.20 RDW 12.9 % 11.5-14.5 WBC 5.3 K/uL 4.8-10.8 Lipid Panel - 10/16/16 16:20 Cardiac Risk 5.2 0.0-5.7 Cholesterol 172 mg/dL 0-199 HDL Cholesterol 33 mg/dL 40-84 LDL Cholesterol 98 mg/dL 0-130 Triglycerides 204 mg/dL 0-149 VLDL Cholesterol 41 mg/dL 0-28 Comprehensive Metabolic Panel (CMP) - 10/16/16 16:20 Albumin 4.3 g/dL 3.5-5.0 Alkaline Phosphatase 61 U/L 40-150 ALT (SGPT) 22 U/L 0-55 Anion Gap 9 NA 3-20 AST (SGOT) 22 U/L 5-34 Bilirubin Total 0.5 mg/dL 0.2-1.2 BUN 15 mg/dL 8-26 Calcium 9.3 mg/dL 8.4-10.2 Chloride 107 mEq/L 99-111 CO2 23 mEq/L 23-31 Creatinine 1.07 mg/dL 0.72-1.25 Globulin 2.6 g/dL 1.8-4.0 Glucose 134 mg/dL 70-99 Potassium 4.5 mEq/L 3.5-5.2 Protein 6.9 g/dL 6.1-7.7 Sodium 139 mEq/L 135-144 Uric Acid - 10/16/16 16:20 Uric Acid 5.4 mg/dL 3.5-7.2 eGFR - 10/16/16 16:20 eGFR >60 mL/min >60 Hemoglobin A1C - 10/16/16 16:20 Hemoglobin A1C 8.4 % 4.1-5.6 Estimated Average Glucose - 10/16/16 16:20 Estimated Average Glucose 194.4 mg/dL CBC With Platelet and Differential - 04/01/17 15:07 Absolute Basophils 0.03 10*3/uL 0.00-0.20 Absolute Eosinophils 0.13 10*3/uL 0.00-0.50 Absolute Lymphocytes 1.99 10*3/uL 0.80-3.30 Absolute Monocytes 0.68 10*3/uL 0.30-1.00 Absolute Neutrophils 4.15 10*3/uL 1.90-7.00 Basophils 0 % 0-2 Eosinophils 2 % 0-4 HCT 43.1 % 42.0-52.0 HGB 14.9 g/dL 14.0-18.0 Immature Granulocytes 0.3 % 0.0-1.0 Lymphocytes 28 % 20-46 MCH 29.7 pg 27.0-32.0 MCHC 34.6 g/dL 32.0-36.0 MCV 85.9 fL 82.0-99.0 Monocytes 10 % 4-11 MPV 10.6 fL 8.8-14.8 Neutrophils 59 % 51-75 Platelet Count 268 K/uL 150-400 RBC 5.02 10*6/uL 4.60-6.20 RDW 13.2 % 11.5-14.5 WBC 7.0 K/uL 4.8-10.8 Albumin Random Urine - 04/01/17 15:07 Albumin Random Urine 1.2 mg/dL 0.0-1.7 Comprehensive Metabolic Panel (CMP) - 04/01/17 15:07 Albumin 4.4 g/dL 3.5-5.0 Alkaline Phosphatase 72 U/L 40-150 ALT (SGPT) 18 U/L 0-55 Anion Gap 11 mEq/L 3-20 AST (SGOT) 20 U/L 5-34 Bilirubin Total 0.4 mg/dL 0.2-1.2 BUN 17 mg/dL 8-26 Calcium 9.8 mg/dL 8.4-10.2 Chloride 104 mEq/L 99-111 CO2 23 mEq/L 23-31 Creatinine 1.03 mg/dL 0.72-1.25 Globulin 2.8 g/dL 1.8-4.0 Glucose 164 mg/dL 70-99 Potassium 3.9 mEq/L 3.5-5.2 Protein 7.2 g/dL 6.1-7.7 Sodium 138 mEq/L 135-144 Lipid Panel - 04/01/17 15:07 Cardiac Risk 5.8 0.0-5.7 Cholesterol 181 mg/dL 0-199 HDL Cholesterol 31 mg/dL 40-84 LDL Cholesterol INVALID mg/dL 0-130 Triglycerides 650 mg/dL 0-149 VLDL Cholesterol INVALID mg/dL 0-28 TSH with Reflex Free T4 - 04/01/17 15:07 TSH with Reflex Free T4 1.99 uIU/mL 0.35-4.94 PSA Reflex - 04/01/17 15:07 PSA Reflex 1.8 ng/mL 0.0-3.5 eGFR - 04/01/17 15:07 eGFR >60 mL/min >60 Hemoglobin A1C - 04/01/17 15:07 Hemoglobin A1C 8.7 % 4.1-5.6 Estimated Average Glucose - 04/01/17 15:07 Estimated Average Glucose 203.0 mg/dL Comprehensive Metabolic Panel (CMP) - 07/09/17 14:44 Albumin 4.0 g/dL 3.5-5.0 Alkaline Phosphatase 59 U/L 40-150 ALT (SGPT) 14 U/L 0-55 Anion Gap 5 mEq/L 3-20 AST (SGOT) 16 U/L 5-34 Bilirubin Total 0.4 mg/dL 0.2-1.2 BUN 18 mg/dL 8-26 Calcium 9.2 mg/dL 8.4-10.2 Chloride 111 mEq/L 99-111 CO2 25 mEq/L 23-31 Creatinine 1.21 mg/dL 0.72-1.25 Globulin 2.6 g/dL 1.8-4.0 Glucose 161 mg/dL 70-99 Potassium 4.5 mEq/L 3.5-5.2 Protein 6.6 g/dL 6.0-7.6 Sodium 141 mEq/L 135-144 eGFR - 07/09/17 14:44 eGFR >60 mL/min >60 Hemoglobin A1C - 07/09/17 14:44 Hemoglobin A1C 8.2 % 4.1-5.6 Estimated Average Glucose - 07/09/17 14:44 Estimated Average Glucose 188.6 mg/dL Hemoglobin A1C - 10/22/17 14:56 Hemoglobin A1C 8.1 % 4.1-5.6 Estimated Average Glucose - 10/22/17 14:56 Estimated Average Glucose 185.8 mg/dL Comprehensive Metabolic Panel (CMP) - 10/22/17 14:56 Albumin 4.2 g/dL 3.5-5.0 Alkaline Phosphatase 75 U/L 40-150 ALT (SGPT) 16 U/L 0-55 Anion Gap 8 mEq/L 3-20 AST (SGOT) 15 U/L 5-34 Bilirubin Total 0.6 mg/dL 0.2-1.2 BUN 16 mg/dL 8-26 Calcium 9.4 mg/dL 8.4-10.2 Chloride 107 mEq/L 99-111 CO2 24 mEq/L 23-31 Creatinine 1.10 mg/dL 0.72-1.25 Globulin 2.4 g/dL 1.8-4.0 Glucose 135 mg/dL 70-99 Potassium 4.0 mEq/L 3.5-5.2 Protein 6.6 g/dL 6.0-7.6 Sodium 139 mEq/L 135-144 eGFR - 10/22/17 14:56 eGFR >60 mL/min >60 Testosterone, Free and Total - 10/29/17 14:37 Testosterone, Total 363 ng/dL 240-950 Uric Acid - 12/16/17 16:11 Uric Acid 5.7 mg/dL 3.5-7.2 Creatinine Venous - 01/02/18 02:06 Creatinine Venous 0.7 mg/dL 0.7-1.2 CBC With Platelet No Differential - 01/02/18 05:45 HCT 40.7 % 42.0-52.0 HGB 14.3 g/dL 14.0-18.0 MCH 30.0 pg 27.0-32.0 MCHC 35.1 g/dL 32.0-36.0 MCV 85.5 fL 82.0-99.0 MPV 10.0 fL 9.4-12.3 Platelet Count 207 K/uL 150-400 RBC 4.76 10*6/uL 4.60-6.20 RDW 13.0 % 11.5-14.5 WBC 13.5 K/uL 4.8-10.8 Alcohol, Blood - 01/02/18 05:45 Alcohol, Blood None Detected mg/dL Basic Metabolic Panel (BMP) - 01/02/18 05:45 Anion Gap 10 mEq/L 3-20 BUN 15 mg/dL 4-20 Calcium 8.2 mg/dL 8.6-10.0 Chloride 103 mEq/L 99-109 CO2 20 mEq/L 22-32 Creatinine 1.02 mg/dL 0.64-1.27 Glucose 245 mg/dL 70-100 Potassium 4.0 mEq/L 3.6-5.1 Sodium 133 mEq/L 136-144 eGFR - 01/02/18 05:45 eGFR >60 mL/min >60 Encounters ACCT No. Visit Discharge Status Pt. Type Provider Facility Loc./Unit Complaint Date/Time [id number] 12/21/2012 12/21/2012 DIS Emergency [facility] 8 19:27:00 22:01:00 , [facility] on [place] [id number] 01/01/2018 [facility] 23:37:00 [facility] Fracture, on [facility] [place] Fracture [id number] 12/02/2016 Document 1731 05:17:31 Registrati on [id number] 11/27/2016 Document 1600 05:16:00 Registrati on [id number] 11/03/2016 Document 1644 05:16:44 Registrati on [id number] 08/12/2016 Document 1612 05:16:12 Registrati on [id number] 08/07/2016 Document 1620 05:16:20 Registrati on [id number] 05/15/2016 Document 1708 05:17:08 Registrati on [id number] 04/22/2016 Document 1638 05:16:38 Registrati on [id number] 03/05/2016 Document 1734 05:17:34 Registrati on [id number] 03/04/2016 Document 1924 05:19:24 Registrati on [id number] 01/19/2016 Document 1531 05:15:31 Registrati on [id number] 01/04/2016 Document 1701 05:17:01 Registrati on [id number] 12/05/2015 Document 1729 05:17:29 Registrati on [id number] 11/30/2015 Document 1704 05:17:04 Registrati on [id number] 06/19/2015 Document 2705 14:27:05 Registrati on [id number] 06/19/2015 Document 4339 13:43:39 Registrati on [id number] 06/19/2015 Document 3626 13:36:26 Registrati on [id number] 06/19/2015 Document 1312 13:13:12 Registrati on [id number] 06/19/2015 Document 1518 12:15:18 Registrati on [id number] 06/19/2015 Document 3225 10:32:25 Registrati on [id number] 03/16/2017 Document 15:40:00 Registrati on [id number] 01/28/2016 Document 00:00:00 Registrati on [id number] 12/16/2017 12/16/2017 [facility], [facility] 6month 58 14:57:00 23:59:00 Britt Mojica [facility] follow up Clinic [id number] 12/07/2017 12/07/2017 DIS Outpatient Hernandez, Via [facility] E21 NEW PT. 90 14:31:00 23:59:00 Annabelle Poon DIABETES Clinic [id number] 10/29/2017 10/29/2017 DIS Outpatient Rodriguez, Via [facility] W21RR 3mo cdm 96 13:58:00 23:59:00 Paul Mojica FM Clinic [id number] 10/22/2017 10/22/2017 DIS Outpatient Rodriguez, Via [facility] W21RR labs am 92 14:43:00 23:59:00 Paul Mojica Lab Clinic [id number] 07/16/2017 07/16/2017 DIS Outpatient oRdriguez, Via [facility] W21RR 3mo cdm 98 14:24:00 23:59:00 Paul Etienne [facility] FM [facility] [id number] 07/09/2017 07/09/2017 DIS Outpatient Rodriguez, Via [facility] [id number] LABS AM 95 13:56:00 23:59:00 Paul Sánchezi Lab Clinic [id number] 06/10/2017 06/10/2017 DIS Outpatient Schwarz, Via [facility] New FOLLOW UP 90 08:50:00 23:59:00 Britt Coelho [facility] [id number] 04/01/2017 04/01/2017 DIS Outpatient Rodriguez, Via [facility] [id number] NEW PT 30 13:50:00 23:59:00 Paul Mojica ESTABLISH Clinic CARE [id number] 11/26/2016 11/26/2016 DIS Outpatient Schwarz, Via [facility] New 3 MONTH 38 15:32:00 23:59:00 Britt Coelho [facility] FOLLOW UP Clinic [id number] 10/16/2016 10/16/2016 DIS Outpatient Teck, Via [facility] New FM TCPA 82 14:51:00 23:59:00 [facility] follow up Clinic Gout [id number] 08/06/2016 08/06/2016 DIS Outpatient Schwarz, Via [facility] New 3 mo fidel 06 15:28:00 23:59:00 Britt Coelho [facility] [id number] 06/18/2016 06/18/2016 DIS Outpatient Schwarz, Via [facility] Mur FORMS 47 11:11:00 23:59:00 Britt Coelho [facility] [id number] 05/14/2016 05/14/2016 DIS Outpatient Schwarz, Via [facility] New NPV 97 15:06:00 23:59:00 Britt Sánchezi Rheum History of Clinic Gout [id number] 04/21/2016 04/21/2016 DIS Outpatient Teck, Via [facility] New FM gout 62 15:58:00 23:59:00 [facility] [id number] 04/10/2016 04/10/2016 DIS Outpatient Teck, Via [facility] New FM TCPA 3 78 14:38:00 23:59:00 [facility] CD Clinic DM HTN gout [id number] 03/16/2016 03/16/2016 DIS Outpatient Teck, Via [facility] New FM gout 30 14:00:00 23:59:00 [facility] [id number] 03/04/2016 03/04/2016 DIS Outpatient Teck, Via [facility] New FM gout in 80 13:47:00 23:59:00 Roman Sánchezi left ankle Clinic [id number] 01/18/2016 01/18/2016 DIS Outpatient Berends, Via [facility] Mur IC KNEE PAIN 54 12:50:00 23:59:00 Colleen Reyes [facility] [id number] 01/03/2016 01/03/2016 DIS Outpatient Teck, Via [facility] New FM 1mth rck 05 14:19:00 23:59:00 Roman Mojica cdm dm Clinic ckd-3 [id number] 12/04/2015 12/04/2015 DIS Outpatient Teck, Via [facility] New FM DISCUSS 43 13:43:00 23:59:00 Roman [facility] LABS Clinic [id number] 11/29/2015 11/29/2015 CLS Outpatient Teck, Via [facility] New FM NPT EST 29 14:26:00 23:59:59 Roman Gal[facility] CARE FROM Clinic DIMA [id number] 11/11/2015 11/11/2015 DIS Outpatient Komarek, Via [facility] New IC RT ANKLE 91 13:02:00 23:59:00 Paul Mojica INJURY Clinic [id number] 05/08/2015 05/08/2015 DIS Outpatient Dima, Via [facility] New FM diabetic 10 15:18:00 23:59:00 Fernandez Mojica check kup Clinic [id number] 07/30/2014 07/30/2014 DIS Outpatient Ani [facility] New FM RT 27 15:41:00 23:59:00 , Sunitha Mojica SHOULDER Clinic PAIN [id number] 12/18/2017 Document 1750 05:17:50 Registrati on [id number] 11/16/2017 Document 1824 05:18:24 Registrati on [id number] 11/12/2017 Document 1731 05:17:31 Registrati on [id number] 08/18/2017 Document 1701 05:17:01 Registrati on [id number] 07/03/2017 Document 1711 05:17:11 Registrati on [id number] 06/11/2017 Document 1706 05:17:06 Registrati on [id number] 04/06/2017 Document 1704 05:17:04 Registrati on [id number] 01/07/2015 Document 18 11:22:00 Registrati on [id number] 12/28/2014 Document 65 15:29:00 Registrati on
--- OUTSIDE RECORDS SUMMARY | 2018-01-05 11:25 | External Medical Summary | Referral Summary ---
:1960 Author Organization [facility] Address [address] [place] [address] [place] [address] Care Team Providers Name Role Phone Fernandez Morgan Primary Care Physician Encounter VC Date(s): 01/07/15 - 01/07/15 [facility] [address] [place] [address] Discharge Disposition: 01-Home or Self Care Attending Physician: Fernandez Morgan MD Admitting Physician: Fernandez Morgan MD Vital Signs Most recent to oldest [Reference Range]: 1 Temperature Tympanic [36.6-38.1 degC] 35.3 degC *LOW* (01/07/15 11:30 AM) Peripheral Pulse Rate [60-100 bpm] 88 bpm (01/07/15 11:30 AM) Respiratory Rate [14-20 br/min] 16 br/min (01/07/15 11:30 AM) Blood Pressure [90-140/60-90 mmHg] 122/80 mmHg (01/07/15 11:30 AM) SpO2 96 % (01/07/15 11:30 AM) Problem List Condition Effective Dates Status Health Status Informant Diabetes mellitus type 2(Confirmed) Active Gout (disorder)(Confirmed) Active High cholesterol(Confirmed) Active Pure hypercholesterolemia Active (disorder)(Confirmed) Allergies, Adverse Reactions, Alerts No Known Medication Allergies Medications allopurinol 100 mg oral tablet See Instructions, TAKE ONE TABLET BY MOUTH DAILY, # 30 tabs, 1 Refill(s), eRx: [facility] #[id number], TAKE ONE TABLET BY MOUTH DAILY Start Date: 06/17/15 Status: OrderedContour test strips Contour test strips, See Instructions, check blood sugar fasting and 2 hours after meals., # 100 Each, 1 Refill(s), Pharmacy: [facility] #[id number], check blood sugar fasting and 2 hours after meals. Start Date: 01/01/15 Status: OrderedCONTOUR TEST STRIPS See Instructions, CHECK BLOOD SUGARS FASTING AND 2 HOURS AFTER MEALS EVERY OTHER DAY, # 100 strip, 1Refill(s), eRx: [facility] #[id number], CHECK BLOOD SUGARS FASTING AND 2 HOURS AFTER MEALS EVERY OTHER DAY Start Date: 05/27/15 Status: OrderedCONTOUR TEST STRIPS See Instructions, CHECK BLOOD SUGARS FASTING AND 2 HOURS AFTER MEALS EVERY OTHER DAY, # 100 strip, 1Refill(s), eRx: [facility] #[id number], CHECK BLOOD SUGARS FASTING AND 2 HOURS AFTER MEALS EVERY OTHER DAY Start Date: 02/18/15 Status: Orderedindomethacin 0 Refill(s) Start Date: 05/08/15 Status: OrderedLopid 600 mg oral tablet See Instructions, TAKE ONE TABLET BY MOUTH TWICE A DAY, # 180 tabs, 1 Refill(s) , eRx: [facility] #[id number], TAKE ONE TABLET BY MOUTH TWICE A DAY Start Date: 01/22/15 Status: OrderedmetFORMIN 1000 mg oral tablet See Instructions, TAKE ONE TABLET BY MOUTH TWICE A DAY, # 60 tabs, 1 Refill(s), eRx: [facility] #[id number], TAKE ONE TABLET BY MOUTH TWICE A DAY Start Date: 06/28/15 Status: Ordered Results No data available for [...] Visit Note Author: Fernandez Morgan MD Date: 01/07/15 Assessment/Plan Diabetes mellitus type 2 Gout (disorder) Plan: I spent 15 minutes in pplx-qq-notj time discussing treatment of diabetes. You did not start invokana. You wanted to try diet exercise and weight loss. I'm setting you u p to see a dietitian. I want to see back in late February or early March and will do A1c and med checkup at that time. I spent from 1130 a.m.1150 p.m. in hxts-qs-dulj time. Orders: metFORMIN, See Instructions, TAKE ONE TABLET BY MOUTH TWICE A DAY, # 60 tabs, [facility] #[id number], TAKE ONE TABLET BY MOUTH TWICE A DAY
--- OUTSIDE RECORDS SUMMARY | 2018-01-05 11:25 | External Medical Summary | Referral Summary ---
:1960 Author Organization Via [facility] [address] [place] [address], Family Medicine Address [address] [address] Care Team Providers Name Role Phone Paul Rodriguez Primary Care Physician Roman Palomo Primary Care Physician Fernandez Morgan Primary Care Physician Encounter VC Date(s): 10/29/17 - 10/29/17 Via [facility]av[facility] [address] [place] [address], [facility] Medicine [address] [address] [place] Encounter Diagnosis DM2 (diabetes mellitus, type 2) (Discharge Diagnosis) - 10/29/17 Mixed hyperlipidemia (Discharge Diagnosis) - 10/29/17 Endogenous obesity (Discharge Diagnosis) - 10/29/17 Decreased libido (Discharge Diagnosis) - 10/29/17 Discharge Disposition: 01-Home or Self Care Attending Physician: Paul Rodriguez DO Admitting Physician: Paul Rodriguez DO Vital Signs Most recent to oldest [Reference Range]: 1 Temperature Tympanic [36.6-38.1 degC] 36.8 degC (10/29/17 2:03 PM) Peripheral Pulse Rate [60-100 bpm] 98 bpm (10/29/17 2:03 PM) Blood Pressure [90-140/60-90 mmHg] 120/60 mmHg (10/29/17 2:03 PM) Problem List Condition Effective Dates Status Health Status Informant Diabetes mellitus type 2(Confirmed) Active High cholesterol(Confirmed) Active Gout (disorder)(Confirmed) Active Pure hypercholesterolemia Active (disorder)(Confirmed) Allergies, Adverse Reactions, Alerts No Known Medication Allergies Medications allopurinol 100 mg oral tablet See Instructions, TAKE ONE TABLET BY MOUTH DAILY ALONG WITH THE 300 MG TABLET, # 30 tabs, 5 Refill(s), Pharmacy: [facility] #[id number], TAKE ONE TABLET BY MOUTH DAILY ALONG WITH THE 300 MG TABLET Start Date: 06/10/17 Status: Orderedallopurinol 300 mg oral tablet See Instructions, TAKE ONE TABLET BY MOUTH DAILY, # 30 tabs, 5 Refill(s), Pharmacy: [facility]#[id number], TAKE ONE TABLET BY MOUTH DAILY Start Date: 06/10/17 Status: OrderedColcrys 0.6 mg oral tablet See Instructions, Pt. is tapering down to 3 a week. Currently taking one daily for 6 days a week, # 30 tabs, 5 Refill(s), Pharmacy: [facility] #[id number] Start Date: 06/10/17 Status: OrderedContour test strips Contour test strips, See Instructions, check blood sugar fasting and 2 hours after meals., # 100 Each, 1 Refill(s), Pharmacy: [facility] #[id number], check blood sugar fasting and 2 hours after meals. Start Date: 01/01/15 Status: OrderedCONTOUR TEST STRIPS See Instructions, CHECK BLOOD SUGARS FASTING AND 2 HOURS AFTER MEALS EVERY OTHER DAY, # 100 strip, 1Refill(s), eRx: [facility] #[id number], CHECK BLOOD SUGARS FASTING AND 2 HOURS AFTER MEALS EVERY OTHER DAY Start Date: 05/27/15 Status: OrderedCONTOUR TEST STRIPS See Instructions, CHECK BLOOD SUGARS FASTING AND 2 HOURS AFTER MEALS EVERY OTHER DAY, # 100 strip, 1Refill(s), eRx: [facility] #[id number], CHECK BLOOD SUGARS FASTING AND 2 HOURS AFTER MEALS EVERY OTHER DAY Start Date: 02/18/15 Status: Ordereddiclofenac 1% topical gel 4 g, Topical, QID, not to exceed 16 grams/day/single joint of lower extremities , # 300 g, 0 Refill(s), Pharmacy: [facility] #[id number] Start Date: 05/14/16 Status: Orderedgemfibrozil 600 mg oral tablet See Instructions, TAKE ONE TABLET BY MOUTH TWICE A DAY, # 60 tabs, 2 Refill(s), Pharmacy: [facility] #[id number], TAKE ONE TABLET BY MOUTH TWICE A DAY Start Date: 08/17/17 Status: Orderedindomethacin 50 mg oral capsule 50 mg 1 caps, Oral, BID, as needed for gout pain, # 60 caps, 0 Refill(s), Pharmacy: [facility]#[id number], 1 caps Oral BID,x30 days,PRN:as needed for gout pain Start Date: 04/21/16 Stop Date: 05/21/16 Status: OrderedJanuvia 100 mg oral tablet See Instructions, TAKE ONE TABLET BY MOUTH DAILY, # 30 tabs, 5 Refill(s), eRx: [facility] #[id number] Start Date: 07/02/17 Status: OrderedmetFORMIN 1000 mg oral tablet See Instructions, TAKE ONE TABLET BY MOUTH TWICE A DAY, # 60 tabs, 5 Refill(s), Pharmacy: [facility] #[id number], TAKE ONE TABLET BY MOUTH TWICE A DAY Start Date: 08/17/17 Status: Ordered Procedures Procedure Date Related Diagnosis Body Site Status Collection of venous blood by 10/29/17 Completed venipuncture Colonoscopy1 03/07/09 Completed Rectal under anesthesia, part. 03/07/09 Completed fistulotomy with placement of 1Colonoscopy within normal limits. 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 Plan repeat colonoscopy in 10 years (03/07/2019) Social History Social History Type Response Smoking Status Former smoker entered on: 07/30/14 Assessment and Plan Extracted from: Title: Ambulatory Patient Education Author: Paul Rodriguez DO Date: 10/29/17 The following Patient Education Materials have been [...] ti me. Your health care provider or engineering aide can help create an activity plan that [...] 11/05/2004 Document Revised: 12/07/2016 Document Reviewed: 01/23/2014 dBMEDx Interactive Patient Education 2017 [employer] No follow up information was provided. Extracted from: Title: DM/HLD/obesity Author: Paul Rodriguez DO Date: 10/29/17 Impression and Plan Diagnosis DM2 (diabetes mellitus, type 2) ([id number]-TH E11.9, Discharge, Medical). Mixed hyperlipidemia (JGY80-UB E78.2, Discharge, Medical). Endogenous obesity (DTT44-TQ E66.8, Discharge, Medical). Decreased libido (YYG88-VX R68.82, Discharge, Medical). Plan: 1. diabetes -- cdm completed continue with diet and exercise continue with current meds pt wants to work on dietary changes and then recheck will refer to director information 2. HLD -- Decrease cholesterol and fats in diet cont. med. discussed senior living effects of elevated lipds including HTN, PAD, CVA, [place]. LAB- up to date 3. diet, exercise, weight loss 4. will check testosterone , follow up in 3 months. Patient Instructions: Diabetes and Exercise, Follow-up. Dx/Order Association Plan: .
--- OUTSIDE RECORDS SUMMARY | 2018-01-05 11:25 | External Medical Summary | Referral Summary ---
:1960 Author Organization [facility] [address] [place] [address] Care Team Providers Name Role Phone Roman Palomo Primary Care Physician Encounter VC Date(s): 01/03/16 - 01/03/16 [facility] [address] [place] [address] [place] Discharge Diagnosis: HTN (hypertension) Discharge Diagnosis: Diabetes mellitus Discharge Diagnosis: Acute renal impairment Discharge Disposition: 01-Home or Self Care Attending Physician: Roman Palomo DO Admitting Physician: Roman Palomo DO Vital Signs Most recent to oldest [Reference Range]: 1 Temperature Tympanic [36.6-38.1 degC] 36.7 degC (01/03/16 2:36 PM) Peripheral Pulse Rate [60-100 bpm] 92 bpm (01/03/16 2:36 PM) Blood Pressure [90-140/60-90 mmHg] 143/82 mmHg *HI* (01/03/16 2:36 PM) Problem List Condition Effective Dates Status Health Status Informant Diabetes mellitus type 2(Confirmed) Active Gout (disorder)(Confirmed) Active High cholesterol(Confirmed) Active Pure hypercholesterolemia Active (disorder)(Confirmed) Allergies, Adverse Reactions, Alerts No Known Medication Allergies Medications allopurinol 100 mg oral tablet 100 mg 1 tabs, Oral, Daily, X 30 days, # 30 tabs, 6 Refill(s), Pharmacy: [facility] #[id number], 1tabs Oral Daily,x30 days Start Date: 11/29/15 Stop Date: 06/26/16 Status: Orderedcolchicine 0.6 mg oral tablet 0.6 mg 1 tabs, Oral, q1hr, as needed for gout pain, # 10 tabs, 0 Refill(s), [facility] #[id number], Take 2 tabs at the onset, may take one tab one hour, 1 tabs Oral q1hr,PRN:as needed for gout pain Start Date: 01/03/16 Stop Date: 02/03/16 Status: OrderedContour test strips Contour test strips, See Instructions, check blood sugar fasting and 2 hours after meals., # 100 Each, 1 Refill(s), Pharmacy: [facility] #[id number], check blood sugar fasting and 2 hours after meals. Start Date: 01/01/15 Status: OrderedCONTOUR TEST STRIPS See Instructions, CHECK BLOOD SUGARS FASTING AND 2 HOURS AFTER MEALS EVERY OTHER DAY, # 100 strip, 1Refill(s), eRx: [facility] #[id number], CHECK BLOOD SUGARS FASTING AND 2 HOURS AFTER MEALS EVERY OTHER DAY Start Date: 05/27/15 Status: OrderedCONTOUR TEST STRIPS See Instructions, CHECK BLOOD SUGARS FASTING AND 2 HOURS AFTER MEALS EVERY OTHER DAY, # 100 strip, 1Refill(s), eRx: [facility] #[id number], CHECK BLOOD SUGARS FASTING AND 2 HOURS AFTER MEALS EVERY OTHER DAY Start Date: 02/18/15 Status: OrderedglipiZIDE 5 mg oral tablet 5 mg 1 tabs, Oral, BID, # 60 tabs, 2 Refill(s), Pharmacy: [facility] # [id number], 1 tabs Oral BID,x30 days Start Date: 12/04/15 Stop Date: 03/03/16 Status: Orderedindomethacin 0 Refill(s) Start Date: 05/08/15 Status: OrderedLopid 600 mg oral tablet 600 mg 1 tabs, Oral, BID, X 30 days, # 60 tabs, 6 Refill(s), Pharmacy: [facility] #[id number], 1 tabs Oral BID,x30 days Start Date: [...] Title: Office Visit Note Author: Roman Palomo Date: 01/03/16 Assessment/Plan Acute renal impairment, Other acute kidney failure 1. I suspect his acute renal findings at loss office visit was secondary to the use of indomethacin for gout management. 2. His renal function has recovered completely. 3. Commended discontinuation of NSAID use. 4. May take ibuprofen or Tylenol for discomfort. 5. Repeat basic metabolic profile prior to next office visit in 3 months. Ordered: Office Visit Level 4 Est 65748 Diabetes mellitus, Type 2 diabetes mellitus without complications 1. I think it's reasonable to restart the metformin at 500 mg twice a day. 2. Continue with glipizide however I want him to decrease the dose to 2.5 mg twice a day. 3. Continue checking blood sugars fasting 3 days per week. 4. Follow-up in 3 months for diabetes management, repeat A1c 2 days prior to next office visit. Ordered: Office Visit Level 4 Est 37492 Essential (primary) hypertension, HTN (hypertension) 1. Blood pressures were relatively controlled. Continue with current medications. 2. Low salt diet recommended. 3. Weight loss recommended. Ordered: Office Visit Level 4 Est 22510 Gout 1. For his recurrent gout symptoms, I recommended increasing the allopurinol to 200 mg daily. 2. Discontinue the use of indomethacin secondary to acute renal failure with use of NSAIDs. 3. He was prescribed colchicine for acute gouty attack, he may take 2 tablets at the onset and repeat in one hour for acute symptoms. 4. Diet modification recommended to avoid gouty attacks. Patient and his voiced understanding. Ordered: colchicine, 0.6 mg 1 tabs, Oral, q1hr, as needed for gout pain, # 10 tabs, 0 Refill(s), Pharmacy: [facility] #[id number], Take 2 tabs at the onset, may take one tab one hour, 1 tabs Oral q1hr,PRN:as needed for gout pain Office Visit Level 4 Est 81075
--- OUTSIDE RECORDS SUMMARY | 2018-01-05 11:25 | External Medical Summary | Referral Summary ---
:1960 Author Organization [facility] Address [address] [place] [address] Care Team Providers Name Role Phone Roman Palomo Primary Care Physician Encounter VC Date(s): 01/18/16 - 01/18/16 [facility] [address] [place] [address] - [place] Discharge Diagnosis: Right knee pain Discharge Disposition: 01-Home or Self Care Attending Physician: Provider, Immediate Care Admitting Physician: Provider, Immediate Care Vital Signs Most recent to oldest [Reference Range]: 1 Temperature Oral [35.8-37.3 degC] 35.6 degC *LOW* (01/18/16 12:52 PM) Peripheral Pulse Rate [60-100 bpm] 74 bpm (01/18/16 12:52 PM) Blood Pressure [90-140/60-90 mmHg] 151/83 mmHg *HI* (01/18/16 12:52 PM) SpO2 98 % (01/18/16 12:52 PM) Problem List Condition Effective Dates Status Health Status Informant Diabetes mellitus type 2(Confirmed) Active Gout (disorder)(Confirmed) Active High cholesterol(Confirmed) Active Pure hypercholesterolemia Active (disorder)(Confirmed) Allergies, Adverse Reactions, Alerts No Known Medication Allergies Medications allopurinol 100 mg oral tablet 100 mg 1 tabs, Oral, Daily, X 30 days, # 30 tabs, 6 Refill(s), Pharmacy: [facility] #[id number], 1tabs Oral Daily,x30 days Start Date: 11/29/15 Stop Date: 06/26/16 Status: Orderedcolchicine 0.6 mg oral tablet 0.6 mg 1 tabs, Oral, q1hr, as needed for gout pain, # 10 tabs, 0 Refill(s), Pharmacy: [facility] #[id number], Take 2 tabs at the onset, may take one tab one hour, 1 tabs Oral q1hr,PRN:as needed for gout pain Start Date: 01/03/16 Stop Date: 02/03/16 Status: OrderedContour test strips Contour test strips, See Instructions, check blood sugar fasting and 2 hours after meals., # 100 Each, 1 Refill(s), Pharmacy: [facility] #[id number], check blood sugar fasting and 2 hours after meals. Start Date: 01/01/15 Status: OrderedCONTOUR TEST STRIPS See Instructions, CHECK BLOOD SUGARS FASTING AND 2 HOURS AFTER MEALS EVERY OTHER DAY, # 100 strip, 1Refill(s), eRx: [facility] #[id number], CHECK BLOOD SUGARS FASTING AND 2 HOURS AFTER MEALS EVERY OTHER DAY Start Date: 05/27/15 Status: OrderedCONTOUR TEST STRIPS See Instructions, CHECK BLOOD SUGARS FASTING AND 2 HOURS AFTER MEALS EVERY OTHER DAY, # 100 strip, 1Refill(s), eRx: [facility] #[id number], CHECK BLOOD SUGARS FASTING AND 2 HOURS AFTER MEALS EVERY OTHER DAY Start Date: 02/18/15 Status: OrderedglipiZIDE 5 mg oral tablet 5 mg 1 tabs, Oral, BID, # 60 tabs, 2 Refill(s), Pharmacy: [facility] # [id number], 1 tabs Oral BID,x30 days Start Date: 12/04/15 Stop Date: 03/03/16 Status: Orderedindomethacin 0 Refill(s) Start Date: 05/08/15 Status: OrderedLopid 600 mg oral tablet 600 mg 1 tabs, Oral, BID, X 30 days, # 60 tabs, 6 Refill(s), Pharmacy: [facility] #[id number], 1 tabs Oral BID,x30 days Start Date: 11/29/15 Stop Date: 06/26/16 Status: OrderedmetFORMIN Oral, 0 Refill(s) Start Date: 01/18/16 Status: OrderedNorco 5 mg-325 mg oral tablet 1 tabs, Oral, q4hr, as needed for pain, X 3 days, # 10 tabs, 0 Refill(s) Start Date: 01/18/16 Stop Date: 01/21/16 Status: Ordered Results Chemistry Most recent to oldest [Reference Range]: 1 Sodium Lvl [135-144 mEq/L] 138 mEq/L (01/18/16 1:26 PM) Potassium Lvl [3.5-5.2 mEq/L] 4.0 mEq/L (01/18/16 1:26 PM) Chloride [99-111 mEq/L] 106 mEq/L (01/18/16 1:26 PM) CO2 [23-31 mEq/L] 22 mEq/L *LOW* (01/18/16 1:26 PM) AGAP [3-20] 10 (01/18/16 1:26 PM) BUN [8-26 mg/dL] 17 mg/dL (01/18/16 1:26 PM) Glucose Lvl [70-99 mg/dL] 168 mg/dL *HI* (01/18/16 1:26 PM) Creatinine Lvl [0.72-1.25 mg/dL] 1.00 mg/dL (01/18/16 1:26 PM) eGFR [>60 mL/min] >60 mL/min 1 (01/18/16 1:26 PM) Calcium Lvl [8.9-10.5 mg/dL] 9.4 mg/dL (01/18/16 1:26 PM) Albumin Lvl [3.5-5.0 gm/dL] 4.6 gm/dL (01/18/16 1:26 PM) Total Protein [6.4-8.3 gm/dL] 7.3 gm/dL (01/18/16 1:26 PM) Globulin [1.8-4.0 gm/dL] 2.7 gm/dL (01/18/16 1:26 PM) ALT [0-55 U/L] 14 U/L (01/18/16 1:26 PM) AST [5-34 U/L] 15 U/L (01/18/16 1:26 PM) Alk Phos [40-150 U/L] 75 U/L (01/18/16 1:26 PM) Bili Total [0.2-1.2 mg/dL] 0.7 mg/dL (01/18/16 1:26 PM) Uric Acid [3.5-7.2 mg/dL] 6.9 mg/dL (01/18/16 1:26 PM) 1Result Comment: Multiply eGFR results by [...] Extracted from: Title: Ambulatory Patient Education Author: Colleen Alvarez INVENTORY SPECIALIST Date: Family Medicine Knee Pain Knee pain is a very common symptom and can have many causes. Knee pain often goes away when you follow your health care provider's instructions for relieving pain and discomfort at home. However, knee p ain can develop into a condition that needs treatment. Some conditions may include: Arthritis caused by wear and tear (osteoarthritis). Arthritis caused by swelling and irritation (rheumatoid arthritis or gout). A cyst or growth in your knee. An infection in your knee joint. An injury that will not heal. Damage, swelling, or irritation of the tissues that support your knee ( torn ligaments or tendinitis). If your knee pain continues, additional tests may be ordered to diagnose your condition. Tests may include X-rays or other imaging studies of your knee. You may also need to have fluid removed from your knee. Treatment for ongoing knee pain depends on the cause, but treatment may include: Medicines to relieve pain or swelling. Steroid injections in your knee. Physical therapy. Surgery. HOME CARE INSTRUCTIONS Take medicines only as directed by your health care provider. Rest your knee and keep it raised (elevated) while you are resting. Do not do things that cause or worsen pain. Avoid high-impact activities or exercises, such as running, jumping rope , or doing jumping jacks. Apply ice to the knee area: Put ice in a plastic bag. Place a towel between your skin and the bag. Leave the ice on for 20 minutes, 23 times a day. Ask your health care provider if you should wear an elastic knee support. Keep a pillow under your knee when you sleep. Lose weight if you are overweight. Extra weight can put pressure on your knee. Do not use any tobacco products, including cigarettes, chewing tobacco, or electronic cigarettes. If you need help quitting, ask your health care provider. Smoking may slow the healing of any bone and joint problems that you may have. SEEK MEDICAL CARE IF: Your knee pain continues, changes, or gets worse. You have a fever along with knee pain. Your knee naomi or locks up. Your knee becomes more swollen. SEEK IMMEDIATE MEDICAL CARE IF: Your knee joint feels hot to the touch. You have chest pain or trouble breathing. This information is not intended to replace advice given to you by your health care provider. Make sure you discuss any questions you have with your health care provider. Document Released: 06/12/2008 Document Revised: 06/04/2015 Document Reviewed: 04/01/2015 ExitCare Patient Information 2015 [facility]. No follow up information was provided. Extracted from: Title: Urgent Care Minor Injury * Author: Colleen Alvarez APRN Date: 01/18/16 Impression and Plan Diagnosis Right knee pain ([id number] M25.561, Discharge, Medical). Plan: Rest, Ice, Compression and Elevation, X-ray was obtained of the right knee which showed no acute abnormality, with small spurring on the superior pole of the patella. CMP was normal with the exc eption of glucose level 189. Uric acid was 6.9. Patient's knee was wrapped with an Edwin wrap. He is to call his PCP for a follow-up appointment after the weekend on 01/20/16. Patient Instructions: Knee Pain. Counseled: Patient, Friend, Verbalized understanding.
--- OUTSIDE RECORDS SUMMARY | 2018-01-05 11:25 | External Medical Summary | Referral Summary ---
:1960 Author Organization [facility], [facility] Address [address] [place] [address] [place] [address] Care Team Providers Name Role Phone Fernandez Morgan Primary Care Physician Encounter VC Date(s): 11/11/15 - 11/11/15 [facility], [address] [place] [address] Discharge Diagnosis: Mild sprain of right ankle Discharge Diagnosis: Arthritis of right ankle Discharge Disposition: 01-Home or Self Care Attending Physician: Paul Monroe PA-C Admitting Physician: Paul Monroe PA-C Vital Signs Most recent to oldest [Reference Range]: 1 Temperature Tympanic [36.6-38.1 degC] 37.3 degC (11/11/15 1:08 PM) Peripheral Pulse Rate [60-100 bpm] 96 bpm (11/11/15 1:08 PM) Blood Pressure [90-140/60-90 mmHg] 142/90 mmHg *HI* (11/11/15 1:08 PM) SpO2 98 % (11/11/15 1:08 PM) Problem List Condition Effective Dates Status Health Status Informant Diabetes mellitus type 2(Confirmed) Active Gout (disorder)(Confirmed) Active High cholesterol(Confirmed) Active Pure hypercholesterolemia Active (disorder)(Confirmed) Allergies, Adverse Reactions, Alerts No Known Medication Allergies Medications allopurinol 100 mg oral tablet See Instructions, TAKE ONE TABLET BY MOUTH DAILY, # 30 tabs, [facility] #[id number], TAKE ONETABLET BY MOUTH DAILY Start Date: 08/12/15 Status: OrderedContour test strips Contour test strips, See Instructions, check blood sugar fasting and 2 hours after meals., # 100 Each, 1 Refill(s), Pharmacy: [facility] #[id number], check blood sugar fasting and 2 hours after meals. Start Date: 01/01/15 Status: OrderedCONTOUR TEST STRIPS See Instructions, CHECK BLOOD SUGARS FASTING AND 2 HOURS AFTER MEALS EVERY OTHER DAY, # 100 strip, 1Refill(s), eRx: [facility] #[id number], CHECK BLOOD SUGARS FASTING AND 2 HOURS AFTER MEALS EVERY OTHER DAY Start Date: 05/27/15 Status: OrderedCONTOUR TEST STRIPS See Instructions, CHECK BLOOD SUGARS FASTING AND 2 HOURS AFTER MEALS EVERY OTHER DAY, # 100 strip, 1Refill(s), eRx: [facility] #[id number], CHECK BLOOD SUGARS FASTING AND 2 HOURS AFTER MEALS EVERY OTHER DAY Start Date: 02/18/15 Status: Orderedindomethacin 0 Refill(s) Start Date: 05/08/15 Status: OrderedLopid 600 mg oral tablet See Instructions, TAKE ONE TABLET BY MOUTH TWICE A DAY, # 180 tabs, eRx: [facility] #[id number], TAKE ONE TABLET BY MOUTH TWICE A DAY Start Date: 07/22/15 Status: OrderedmetFORMIN 1000 mg oral tablet See Instructions, TAKE ONE TABLET BY MOUTH TWICE A DAY, # 60 tabs, eRx: [facility] #[id number], TAKE ONE TABLET BY MOUTH TWICE A DAY Start Date: 08/26/15 Status: Ordered Results No data available for [...] smoker Assessment and Plan Extracted from: Title: R ankle sprain Author: Paul Monroe PA-C Date: 11/11/15 Assessment/Plan Ankle pain, right Ordered: XR Ankle Complete Right Addendum by Paul Monroe PA-C on Right ankle x-ray:Showed evidence of degenerative change at theright anklejoint,also evidence of old avulsion fracture, no acute pathology November 11, 2015 13:49:11 CDT Right ankle sprain lateral,mild I recommended rest and ice elevation continuation of his indomethacin which he will require refill for. He will make an appointment with Dr. Andrews is going to become his new primary care. We did d iscuss lab to monitor long-term use of indomethacin;was discussed with the patient.I did give him a ankle sprain handoutwith some exercises he could perform. Right ankle osteoarthritis As above Rightankle pain- as above
--- OUTSIDE RECORDS SUMMARY | 2018-01-05 11:25 | External Medical Summary | Referral Summary ---
:1960 Author Organization [facility] [address] [place] [address] Care Team Providers Name Role Phone Roman Palomo Primary Care Physician Encounter VC Date(s): 05/14/16 - 05/14/16 [facility] [address] [place] [address] [place] [phone] Discharge Diagnosis: Gouty arthritis Discharge Diagnosis: Medication management Discharge Disposition: 01-Home or Self Care Attending Physician: Britt Schawrz MD Admitting Physician: Britt Schwarz MD Referring Physician: Roman Palomo DO Vital Signs Most recent to oldest [Reference Range]: 1 Peripheral Pulse Rate [60-100 bpm] 87 bpm (05/14/16 3:33 PM) Blood Pressure [90-140/60-90 mmHg] 143/84 mmHg *HI* (05/14/16 3:33 PM) Problem List Condition Effective Dates Status Health Status Informant Diabetes mellitus type 2(Confirmed) Active Gout (disorder)(Confirmed) Active High cholesterol(Confirmed) Active Pure hypercholesterolemia Active (disorder)(Confirmed) Allergies, Adverse Reactions, Alerts No Known Medication Allergies Medications allopurinol 100 mg oral tablet 100 mg 1 tabs, Oral, Daily, to take with the 300 mg tab, # 30 tabs, 2 Refill(s) , Pharmacy: [facility] #[id number], 1 tabs Oral Daily,Instr:to take with the 300 mg tab Start Date: 05/14/16 Status: Orderedallopurinol 300 mg oral tablet See Instructions, TAKE ONE TABLET BY MOUTH DAILY, # 30 tabs, 2 Refill(s), Pharmacy: [facility]#[id number], TAKE ONE TABLET BY MOUTH DAILY Start Date: 05/14/16 Status: OrderedColcrys 0.6 mg oral tablet 0.6 mg 1 tabs, Oral, Daily, # 30 tabs, 2 Refill(s), Pharmacy: [facility] # [id number] Start Date: 05/14/16 Stop Date: 05/14/16 Status: OrderedContour test strips Contour test strips, See Instructions, check blood sugar fasting and 2 hours after meals., # 100 Each, 1 Refill(s), Pharmacy: [facility] #[id number], check blood sugar fasting and 2 hours after meals. Start Date: 01/01/15 Status: OrderedCONTOUR TEST STRIPS See Instructions, CHECK BLOOD SUGARS FASTING AND 2 HOURS AFTER MEALS EVERY OTHER DAY, # 100 strip, 1Refill(s), eRx: [facility] #[id number], CHECK BLOOD SUGARS FASTING AND 2 HOURS AFTER MEALS EVERY OTHER DAY Start Date: 05/27/15 Status: OrderedCONTOUR TEST STRIPS See Instructions, CHECK BLOOD SUGARS FASTING AND 2 HOURS AFTER MEALS EVERY OTHER DAY, # 100 strip, 1Refill(s), eRx: [facility] #[id number], CHECK BLOOD SUGARS FASTING AND 2 HOURS AFTER MEALS EVERY OTHER DAY Start Date: 02/18/15 Status: Ordereddiclofenac 1% topical gel 4 g, Topical, QID, not to exceed 16 grams/day/single joint of lower extremities , # 300 g, 0 Refill(s), Pharmacy: [facility] #[id number] Start Date: 05/14/16 Status: OrderedglipiZIDE 5 mg oral tablet See Instructions, TAKE ONE TABLET BY MOUTH TWICE A DAY, # 60 tabs, 2 Refill(s), eRx: [facility] #[id number], TAKE ONE TABLET BY MOUTH TWICE A DAY Start Date: 03/03/16 Status: Orderedindomethacin 50 mg oral capsule 50 mg 1 caps, Oral, BID, as needed for gout pain, # 60 caps, 0 Refill(s), Pharmacy: [facility]#[id number], 1 caps Oral BID,x30 days,PRN:as needed for gout pain Start Date: 04/21/16 Stop Date: 05/21/16 Status: OrderedLopid 600 mg oral tablet 600 mg 1 tabs, Oral, BID, X 30 days, # 60 tabs, 6 Refill(s), Pharmacy: [facility] #[id number], 1 tabs Oral BID,x30 days Start Date: 11/29/15 Stop Date: 06/26/16 Status: OrderedmetFORMIN 1,000 mg, Oral, BID, 0 [...] Visit Note Author: Britt Schwarz MD Date: 05/14/16 Assessment/Plan 1.Gouty arthritis He has a presentation compatible with gouty arthritis. He is currently on allopurinol 300 mg with his uric acid mildly above goal of 6 at a level of 7 currently. I will incre ase his allopurinol to 400 mg and start on colchicine for prophylaxis to control flares while we get his uric acid under control. We discussed diet and he has already made changes. I will recheck his ur ic acid in 2 weeks. He will let us know if he has any flares. Currently we will try using the indomethacin as needed for flares. With his diabetes, prednisone would not be optimal. Ordered: CBC w/ Differential Comprehensive Metabolic Panel Uric Acid 2.Medication management I will check liver tests and blood countswith labs in 2 weeks. Ordered: CBC w/ Differential Comprehensive Metabolic Panel Uric Acid He will follow-up in 3 months.
--- OUTSIDE RECORDS SUMMARY | 2018-01-05 11:25 | External Medical Summary | Referral Summary ---
:1960 Author Organization [facility] Address [address] [place] [address] [place] [address] Care Team Providers Name Role Phone Paul Rodriguez Primary Care Physician Encounter VC Date(s): 06/10/17 - 06/10/17 [facility] [address] [place] [address] [place] [phone] [place] Discharge Diagnosis: Gout Discharge Diagnosis: Medication management Discharge Disposition: 01-Home or Self Care Attending Physician: Britt Schwarz MD Admitting Physician: Britt Schwarz MD Vital Signs Most recent to oldest [Reference Range]: 1 Peripheral Pulse Rate [60-100 bpm] 80 bpm (06/10/17 9:02 AM) Blood Pressure [90-140/60-90 mmHg] 143/70 mmHg *HI* (06/10/17 9:02 AM) Problem List Condition Effective Dates Status Health Status Informant Diabetes mellitus type 2(Confirmed) Active High cholesterol(Confirmed) Active Gout (disorder)(Confirmed) Active Pure hypercholesterolemia Active (disorder)(Confirmed) Allergies, Adverse Reactions, Alerts No Known Medication Allergies Medications allopurinol 100 mg oral tablet See Instructions, TAKE ONE TABLET BY MOUTH DAILY ALONG WITH THE 300 MG TABLET, # 30 tabs, 5 Refill(s), Pharmacy: [facility] #[id number], TAKE ONE TABLET BY MOUTH DAILY ALONG WITH THE 300 MG TABLET Start Date: 06/10/17 Status: Orderedallopurinol 300 mg oral tablet See Instructions, TAKE ONE TABLET BY MOUTH DAILY, # 30 tabs, 5 Refill(s), Pharmacy: [facility]#[id number], TAKE ONE TABLET BY MOUTH DAILY Start Date: 06/10/17 Status: OrderedColcrys 0.6 mg oral tablet See Instructions, TAKE ONE TABLET BY MOUTH DAILY, # 30 tabs, 5 Refill(s), Pharmacy: [facility]#[id number] Start Date: 06/10/17 Status: OrderedContour test strips Contour test strips, See Instructions, check blood sugar fasting and 2 hours after meals., # 100 Each, 1 Refill(s), Pharmacy: [facility] #[id number], check blood sugar fasting and 2 hours after meals. Start Date: 01/01/15 Status: OrderedCONTOUR TEST STRIPS See Instructions, CHECK BLOOD SUGARS FASTING AND 2 HOURS AFTER MEALS EVERY OTHER DAY, # 100 strip, 1Refill(s), eRx: [facility] #[id number], CHECK BLOOD SUGARS FASTING AND 2 HOURS AFTER MEALS EVERY OTHER DAY Start Date: 05/27/15 Status: OrderedCONTOUR TEST STRIPS See Instructions, CHECK BLOOD SUGARS FASTING AND 2 HOURS AFTER MEALS EVERY OTHER DAY, # 100 strip, 1Refill(s), eRx: [facility] #[id number], CHECK BLOOD SUGARS FASTING AND 2 HOURS AFTER MEALS EVERY OTHER DAY Start Date: 02/18/15 Status: Ordereddiclofenac 1% topical gel 4 g, Topical, QID, not to exceed 16 grams/day/single joint of lower extremities , # 300 g, 0 Refill(s), Pharmacy: [facility] #[id number] Start Date: 05/14/16 Status: Orderedgemfibrozil 600 mg oral tablet See Instructions, TAKE ONE TABLET BY MOUTH TWICE A DAY, # 60 tabs, 5 Refill(s), eRx: [facility] #[id number], TAKE ONE TABLET BY MOUTH TWICE A DAY Start Date: 12/01/16 Status: Orderedindomethacin 50 mg oral capsule 50 mg 1 caps, Oral, BID, as needed for gout pain, # 60 caps, 0 Refill(s), Pharmacy: [facility]#[id number], 1 caps Oral BID,x30 days,PRN:as needed for gout pain Start Date: 04/21/16 Stop Date: 05/21/16 Status: OrderedJanuvia 100 mg oral tablet 100 mg 1 tabs, Oral, Daily, # 30 tabs, 2 Refill(s), Pharmacy: [facility] # [id number] Start Date: 04/05/17 Status: OrderedmetFORMIN 1000 mg oral tablet See Instructions, TAKE ONE TABLET BY MOUTH TWICE A DAY, # 60 tabs, 5 Refill(s), eRx: [facility] #[id number], TAKE ONE TABLET BY MOUTH TWICE A [...] 07/30/14 Assessment and Plan Extracted from: Title: Office Visit Note Author: Britt Schwarz MD Date: 06/10/17 1.Gout This appears overall to vestable. He was having some discomfort in his left knee which may potentially beenaborted gout attack. At this time I will continue his allopurinol. We will try to de crease the colchicine. He will try to take it3 times a week and assess how this does. He will check his uric acid when he has labs donewith his PCP. Continue allopurinol 400 mg. Ordered: Uric Acid 2.Medication management He did have recent blood counts liver tests. Ordered: Uric Acid Follow-up6 months or sooner if needed.
--- OUTSIDE RECORDS SUMMARY | 2018-01-05 11:25 | External Medical Summary | Referral Summary ---
:1960 Author Organization [facility] [place] [address] Care Team Providers Name Role Phone Fernandez Morgan Primary Care Physician Encounter VC Date(s): 05/08/15 - 05/08/15 [facility] [place] [phone] [place] Discharge Diagnosis: Gout (disorder) Discharge Diagnosis: High cholesterol Discharge Diagnosis: Diabetes mellitus Discharge Disposition: 01-Home or Self Care Attending Physician: Fernandez Morgan MD Admitting Physician: Fernandez Morgan MD Vital Signs Most recent to oldest [Reference Range]: 1 Temperature Tympanic [36.6-38.1 degC] 36.6 degC (05/08/15 3:26 PM) Peripheral Pulse Rate [60-100 bpm] 84 bpm (05/08/15 3:26 PM) Blood Pressure [90-140/60-90 mmHg] 142/78 mmHg *HI* (05/08/15 3:26 PM) Problem List Condition Effective Dates Status Health Status Informant Diabetes mellitus type 2(Confirmed) Active Gout (disorder)(Confirmed) Active High cholesterol(Confirmed) Active Pure hypercholesterolemia Active (disorder)(Confirmed) Allergies, Adverse Reactions, Alerts No Known Medication Allergies Medications allopurinol 100 mg oral tablet See Instructions, TAKE ONE TABLET BY MOUTH DAILY, # 30 tabs, eRx: [facility] #[id number], TAKE ONETABLET BY MOUTH DAILY Start Date: 08/12/15 Status: OrderedContour test strips Contour test strips, See Instructions, check blood sugar fasting and 2 hours after meals., # 100 Each, 1 Refill(s), Pharmacy: [facility] #[id number], check blood sugar fasting and 2 hours after meals. Start Date: 01/01/15 Status: OrderedCONTOUR TEST STRIPS See Instructions, CHECK BLOOD SUGARS FASTING AND 2 HOURS AFTER MEALS EVERY OTHER DAY, # 100 strip, 1Refill(s), eRx: [facility] #[id number], CHECK BLOOD SUGARS FASTING AND 2 HOURS AFTER MEALS EVERY OTHER DAY Start Date: 05/27/15 Status: OrderedCONTOUR TEST STRIPS See Instructions, CHECK BLOOD SUGARS FASTING AND 2 HOURS AFTER MEALS EVERY OTHER DAY, # 100 strip, 1Refill(s), eRx: [facility] #[id number], CHECK BLOOD SUGARS FASTING AND 2 HOURS AFTER MEALS EVERY OTHER DAY Start Date: 02/18/15 Status: Orderedindomethacin 0 Refill(s) Start Date: 05/08/15 Status: OrderedLopid 600 mg oral tablet See Instructions, TAKE ONE TABLET BY MOUTH TWICE A DAY, # 180 tabs, eRx: [facility] #[id number], TAKE ONE TABLET BY MOUTH TWICE A DAY Start Date: 07/22/15 Status: OrderedmetFORMIN 1000 mg oral tablet See Instructions, TAKE ONE TABLET BY MOUTH TWICE A DAY, # 60 tabs, eRx: [facility] #[id number], TAKE ONE TABLET BY MOUTH TWICE A [...] Visit Note Author: Fernandez Morgan MD Date: 05/08/15 Assessment/Plan Diabetes mellitus Gout (disorder) High cholesterol Plan:Continueall current medicationsandblood sugar monitoring. We discussed exercise. I congratulated youon swimming 3 days a week. Follow- up in 3 months. We discussedthe need to find a new primary care physician.
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
[2018-01-05 12:48] VITALS: BMI 29.2
[2018-01-05] MEDS: Oxycodone *IR* 5 MG TABLET PO SCH ×4 (13:39→21:30)
--- NOTE | 2018-01-05 14:16 | IRU 24Hr Post Admit Eval ---
24 Hr Post Admission Physical - Relevant Changes Relevant Changes: No Reviewed: I have reviewed the patient's information and concur with the finding and results of the pre-admission screen. Certification: I certify the patient for rehabilitation. - Patient Condition (1) S/P ORIF (open reduction internal fixation) fracture Status: Acute Code(s): Z96.7 - Presence of other bone and tendon implants; Z87.81 - Personal history of (healed) traumatic fracture Classification: Present on IRF Admission, IRF Tx That Should Address Diagnosis, Diagnosis Requiring Medical Follow Up (2) Rib fracture Status: Acute Qualifiers: Encounter type: subsequent encounter Rib fracture type: single rib Fracture type: closed Laterality: right Fracture healing: with routine healing Qualified Code(s): S22.31XD - Fracture of one rib, right side, subsequent encounter for fracture with routine healing Code(s): S22.39XA - Fracture of one rib, unspecified side, initial encounter for closed fracture Classification: Present on IRF Admission, IRF Tx That Should Address Diagnosis (3) Diabetes mellitus type II, uncontrolled Status: Chronic Qualifiers: Diabetes mellitus intermediate card tender insulin use: without intermediate card tender use Diabetes mellitus complication status: without complication Qualified Code(s): E11.65 - Type 2 diabetes mellitus with hyperglycemia Code(s): E11.65 - Type 2 diabetes mellitus with hyperglycemia Classification: Present on IRF Admission, IRF Tx That Should Address Diagnosis, Diagnosis Requiring Medical Follow Up (4) Hypertriglyceridemia Status: Chronic Code(s): E78.1 - Pure hyperglyceridemia Classification: Present on IRF Admission, Diagnosis Requiring Medical Follow Up (5) Gout Status: Chronic Qualifiers: Gout site: multiple sites Gout etiology: unspecified cause Chronicity: chronic Qualified Code(s): M1A.09X0 - Idiopathic chronic gout, multiple sites , without tophus (tophi) Code(s): M10.9 - Gout, unspecified Classification: Diagnosis Requiring Medical Follow Up - Prior Functional Status Lives With: Children, Spouse Residence Type: Apartment/Private Home Assitive Devices: None Prior Functional Status: Indep. at home or school, Indep. w/ IADL - Current Functional Status Current Level of Function: His current level of functioning is as follows: He is nonweightbearing in the right upper extremity. He requires supervision for eating, minimum assistance for grooming, moderate assistance for bathing and upper body dressing, total assistance for lower body dressing, maximum assistance for toileting, moderate assistance for bed/chair/wheelchair transfers, toilet transfers and walking. He is able to ambulate with a single-point cane only 3 feet. He is able to maintain his nonweightbearing in the right upper extremity but requires verbal cues to perform weightbearing in the right lower extremity. Failed Alternative Therapy: Arrived from Acute Care Patient Requirements: The patient requires oversight by rehabilitation physician to manage their rehabilitation treatment plan and multidisciplinary approach to care that can only be provided in an IRF and requires a multidisciplinary approach to care, provided by professional PTs, OTs, STs, dieticians, RTs, rehabilitation nurses and is not available in lesser levels of care. Limitations Req: Mobility Impairment, ADL Impairment Physical Therapy Minutes: 90 Occupational Therapy Minutes: 90 Therapy: The patient is to receive therapy at least 5 days a week. ROM Deficit: Right Upper Extremity - Complications/Comorbidities Impact on Functional Outcomes: Patient's pain both in the right rib, right shoulder as well as right leg may negatively impact his functional outcome. Barriers to Discharge: Endurance, Pain Control - Plan to Avoid Complications Plan to Avoid Complications: The patient cannot receive this care in a lesser intensive setting such as Custodial or Outpatient Therapy due to the patient requiring the following : This patient has multiple fractures and difficult pain management. He has diabetes mellitus with blood sugars over 200. He has required supplemental insulin recently. The patient also has history of recurrent gout and is at risk for respiratory difficulty, atelectasis or even pneumonia in view of his right rib fracture and pain with breathing. He requires a multidisciplinary approach with physical therapy, occupational therapy and medical supervision to allow him to return to as high a level of independence as possible.
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
[2018-01-05] MEDS: METFORMIN 1,000 MG TABLET PO SCH (17:45)
[2018-01-05] MEDS: GEMFIBROZIL 600 MG TABLET PO SCH (21:30)
[2018-01-05] MEDS: SENNA + DOCUSATE TABLET PO SCH (21:30)
[2018-01-06] MEDS: Oxycodone *IR* 5 MG TABLET PO SCH ×8 (02:00→20:37)
[2018-01-06] MEDS: SITAGLIPTIN 100 MG TABLET PO SCH (08:27)
[2018-01-06] MEDS: RIVAROXABAN 10 MG TABLET PO SCH (08:27)
[2018-01-06] MEDS: METFORMIN 1,000 MG TABLET PO SCH ×2 (08:27→17:12)
[2018-01-06] MEDS: SENNA + DOCUSATE TABLET PO SCH ×2 (08:27→20:38)
[2018-01-06] MEDS: GEMFIBROZIL 600 MG TABLET PO SCH ×2 (08:27→20:37)
[2018-01-06] MEDS: ALLOPURINOL 100 MG TABLET PO SCH (08:28)
[2018-01-06] MEDS: POLYETHYL GLYCOL 3350 17gm PACKET PO SCH (08:28)
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
[2018-01-06] MEDS: INSULIN DETEMIR 100unit/ml INJECTION SQ SCH (20:38)
[2018-01-06] MEDS: INSULIN ASPART 100unit/ml INJECTION SQ PRN (21:00)
[2018-01-07] MEDS: Oxycodone *IR* 5 MG TABLET PO SCH ×8 (02:07→21:34)
[2018-01-07] MEDS: INSULIN ASPART 100unit/ml INJECTION SQ PRN ×3 (06:47→21:34)
[2018-01-07] MEDS: GEMFIBROZIL 600 MG TABLET PO SCH ×2 (08:20→17:28)
[2018-01-07] MEDS: POLYETHYL GLYCOL 3350 17gm PACKET PO SCH (08:21)
[2018-01-07] MEDS: SENNA + DOCUSATE TABLET PO SCH ×2 (08:21→21:35)
[2018-01-07] MEDS: SITAGLIPTIN 100 MG TABLET PO SCH (08:21)
[2018-01-07] MEDS: ALLOPURINOL 100 MG TABLET PO SCH (08:21)
[2018-01-07] MEDS: METFORMIN 1,000 MG TABLET PO SCH ×2 (08:21→17:28)
[2018-01-07] MEDS: RIVAROXABAN 10 MG TABLET PO SCH (08:21)
--- NOTE | 2018-01-07 11:20 | IRU Progress Note ---
- Subjective/Serverity of Illness Date: 01/07/18 Mr. Mcgee was evaluated on inpatient rehabilitation. He is working hard with rehabilitation and with ambulation. He is walking with a hemiwalker but finds it extremely difficult to bear weight on the right leg. There is severe pain with placement of weight on the right leg. He had this problem in [place] as well. While he is dyspneic with activity he is also working hard in the dyspnea appears to be very much in proportion with his energy expenditure. He denies any chest pain. Continues to struggle with constipation which I imagine is due to the fractures , pain as well as pain medication. I offered an enema but he declines. He also has quite a bit of anorexia which is likely multifactorial and related to pain medication as well as discouragement/exogenous depression. Brief therapy update: I observed him ambulate with physical therapy with a hemiwalker some 70 feet. He finds it difficult to bear weight on the right lower extremity. Update on medical issues we are actively monitoring and managing as follows: 1. Multiple fractures: open comminuted fracture of the shaft of the right tibia , fracture of the right eighth rib, closed displaced fracture of the right acromial process. He has undergone open reduction internal fixation of the right tibial fracture. Pain management somewhat difficult with regard to the right lower extremity. Otherwise he seems to be doing fairly well. 2. Diabetes Mellitus type II, not controlled: His A1c is 8.5% here. He has been started on a long-acting agent as well as a sliding scale and his oral agents ( Januvia and metformin) have been continued. His blood sugars are reviewed and are running around 200 or greater. 3. Gout: Denies current flareup. Remains on prophylactic medication in this regard. 4. Slow transit constipation: remains on softener and Miralax. Exam Vital Signs: Temperature 98.2 F 01/07/18 07:49 Pulse Rate 98 01/07/18 07:49 Respiratory Rate 16 01/07/18 07:49 Blood Pressure 146/82 H 01/07/18 07:49 Pulse Oximetry 97 01/07/18 07:49 Height/Weight/BMI: Height 1.8 m Weight 95.3 kg Body Mass Index 29.2 - Constitutional Present: moderate distress (with ambulation and weightbearing he is in distress with regard to pain. However he is working very hard.), well nourished, well developed, obese, cooperative - Routine HEENT Exam Head: Present: normocephalic Eye: Present: EOMI ENT: Present: mucous membranes moist, oropharynx clear - Routine Respiratory Exam Present: CTA bilaterally. Absent: wheezes - Routine Cardiovascular Exam Present: RRR, S1, S2. Absent: murmur - Routine Abdominal Exam Present: soft, normoactive bowel sounds, non distended. Absent: tenderness - Routine Extremities Exam Present: no edema, normal capillary refill - Routine Skin Exam Present: dry, warm - Routine Neurological Exam Present: alert, oriented X3, CN II-XII intact - Routine Psychiatric Exam Present: normal affect, cooperative, anxious Results IRU - Labs Labs: Have reviewed other providers notes as well as laboratory results. IRU A/P (1) S/P ORIF (open reduction internal fixation) fracture Current visit: Yes Status: Acute Clinically the fracture appears to be stable. He does have quite a bit of discomfort with ambulation and weightbearing. We will continue to monitor. This does not appear to be new as he was having the same problem in [place]. 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 Medications and insulin have been adjusted by hospitalist service. (4) Hypertriglyceridemia Current visit: Yes Status: Chronic (5) Gout Qualifiers: Gout site: multiple sites Gout etiology: unspecified cause Chronicity: chronic Qualified Code(s): M1A.09X0 - Idiopathic chronic gout, multiple sites , without tophus (tophi) Current visit: Yes Status: Chronic (6) Slow transit constipation Current visit: Yes Status: Acute Patient remains on stool softener and MiraLAX. Declines enema at present. DVT Prophylaxis: Xarelto Resuscitation Status: Full Code - Course Hospital Course: Bi Sánchez MD: 01/07/18 11:21 Substantial pain with ambulation as noted in the right lower extremity. He is cooperative with therapy and trying hard. Blood sugars are elevated and adjustments have been made. - Interventions to Obtain Goals PT Treatment Plan: Balance/Proprioception, Functional Activities, Gait Training , Patient/Family Education, Therapeutic Exercise OT Treatment Plan: ADL (Basic Care), Balance Training, Pt./Family Education, Ther. Exercise for ADL Goals Progress/Modifications: The patient is trying very hard with regard to therapy. He expresses quite a bit of discomfort in the right lower extremity with activity. I talked about decreasing his oxycodone but at present I'm not certain it is appropriate since he is having so much discomfort. He is fairly comfortable at rest but primarily has discomfort with ambulation. Bowels still have not moved. Discussed with him the possibility of an enema but he declines at present. He reports a poor appetite. Not certain if this is related to pain medication or discouragement. Discussed this with the patient as well.Please note that the patient's individual plan of care was developed and documented today, requiring review of therapy notes, medical conditions and anticipated functional recovery. This required additional medical decision making with regard to interaction of the patient's medical issues with the anticipated functional recovery. Please see separate document
--- NOTE | 2018-01-07 11:27 | IRU Plan of Care ---
[facility] Overall Plan of Care - Date Date: 01/07/18 - Patient Impairments (1) S/P ORIF (open reduction internal fixation) fracture Code(s): Z96.7 - Presence of other bone and tendon implants; Z87.81 - Personal history of (healed) traumatic fracture Status: Acute Classification: Present on IRF Admission, IRF Tx That Should Address Diagnosis, Diagnosis Requiring Medical Follow Up (2) Rib fracture Qualifiers: Encounter type: subsequent encounter Rib fracture type: single rib Fracture type: closed Laterality: right Fracture healing: with routine healing Qualified Code(s): S22.31XD - Fracture of one rib, right side, subsequent encounter for fracture with routine healing Code(s): S22.39XA - Fracture of one rib, unspecified side, initial encounter for closed fracture Status: Acute Classification: Present on IRF Admission, IRF Tx That Should Address Diagnosis (3) Diabetes mellitus type II, uncontrolled Qualifiers: Diabetes mellitus intermediate frame tender insulin use: without intermediate frame tender use Diabetes mellitus complication status: without complication Qualified Code(s): E11.65 - Type 2 diabetes mellitus with hyperglycemia Code(s): E11.65 - Type 2 diabetes mellitus with hyperglycemia Status: Chronic Classification: Present on IRF Admission, IRF Tx That Should Address Diagnosis, Diagnosis Requiring Medical Follow Up (4) Hypertriglyceridemia Code(s): E78.1 - Pure hyperglyceridemia Status: Chronic Classification: Present on IRF Admission, Diagnosis Requiring Medical Follow Up (5) Gout Qualifiers: Gout site: multiple sites Gout etiology: unspecified cause Chronicity: chronic Qualified Code(s): M1A.09X0 - Idiopathic chronic gout, multiple sites , without tophus (tophi) Code(s): M10.9 - Gout, unspecified Status: Chronic Classification: Diagnosis Requiring Medical Follow Up (6) Slow transit constipation Code(s): K59.01 - Slow transit constipation Status: Acute Classification: Present on IRF Admission, IRF Tx That Should Address Diagnosis - Relevant Changes Relevant Changes: No Reviewed: I have reviewed the patient's information and concur with the finding and results of the pre-admission screen. Certification: I certify the patient for rehabilitation. - Medical Prognosis Medical Prognosis: Good Vital Signs: Last Vital Signs Temp 98.2 F 01/07/18 07:49 Pulse 98 01/07/18 07:49 Resp 16 01/07/18 07:49 BP 146/82 H 01/07/18 07:49 Pulse Ox 97 01/07/18 07:49 - Anticipated Interventions Anticipated Interventions: The patient requires inpatient IRF care for PT, OT, and/or ST for residuals remaining from multiple fractures resulting in muscular weakness and strength deficits. An individualized overall plan of care has been developed after careful review of the patient's preadmission screening, post admission physician evaluation and assessments of all therapy disciplines and/or other pertinent clinicians involved in treating the patient. This indicates medical necessity and rehabilitation necessity have been established through a thorough review of all available medical information. ROM Deficit: Right Upper Extremity, Right Lower Extremity Strength Deficits: Right Upper Extremity, Right Lower Extremity - Current Functional Status Failed Alternative Therapy: Arrived from Acute Care Patient Requires: The patient requires oversight by rehabilitation physician to manage their rehabilitation treatment plan and multidisciplinary approach to care that can only be provided in an IRF and requires a multidisciplinary approach to care, provided by professional PTs, OTs, STs, rehabilitation nurses, and may require STs, dieticians, and RTS. This is not available in lesser levels of care. Physical Therapy Minutes: 90 Occupational Therapy Minutes: 90 Therapy: The patient is to receive therapy at least 5 days a week. - Anticipated LOS/Outcomes Anticipated Functional Outcome: It is anticipated the patient will have control of his pain, have adequate bowel movements and be able to ambulate with a hemiwalker at supervision level with only moderate discomfort. It is anticipated he will be able to perform his own activities of daily living independently or with modified independent level. Anticipated Length of Stay (days): 14 Anticipated DC Destination: Home, Self Care, Home Health Service Home Safety Plan: The patient will be provided with the development of a Home Safety Plan for return to a home or home-like environment and and to ensure safety post discharge. - Plan to Avoid Complications Barriers to Attaining Goals: Weakness, Endurance, Pain Control Plan to Avoid Complications: The patient cannot receive this care in a lesser intensive setting such as Custodial or Outpatient Therapy due to the patient requiring the following : He requires close monitoring of his pain as well as pain management by 24 hour rehabilitation nursing. He requires close monitoring of his blood sugars which are not currently in control. He requires a multidisciplinary approach with PT and OT and medical supervision in view of these medical conditions.
[2018-01-07] MEDS: INSULIN DETEMIR 100unit/ml INJECTION SQ SCH (21:34)
[2018-01-08] MEDS: Oxycodone *IR* 5 MG TABLET PO SCH ×8 (02:15→20:25)
[2018-01-08] MEDS: INSULIN ASPART 100unit/ml INJECTION SQ PRN ×4 (05:55→21:00)
[2018-01-08] MEDS: ALLOPURINOL 100 MG TABLET PO SCH (08:23)
[2018-01-08] MEDS: RIVAROXABAN 10 MG TABLET PO SCH (08:23)
[2018-01-08] MEDS: SITAGLIPTIN 100 MG TABLET PO SCH (08:23)
[2018-01-08] MEDS: GEMFIBROZIL 600 MG TABLET PO SCH ×2 (08:24→17:05)
[2018-01-08] MEDS: METFORMIN 1,000 MG TABLET PO SCH ×2 (08:24→17:06)
[2018-01-08] MEDS: SENNA + DOCUSATE TABLET PO SCH ×2 (08:24→20:25)
[2018-01-08] MEDS: POLYETHYL GLYCOL 3350 17gm PACKET PO SCH (08:25)
[2018-01-08] MEDS: INSULIN DETEMIR 100unit/ml INJECTION SQ SCH (20:26)
[2018-01-09] MEDS: Oxycodone *IR* 5 MG TABLET PO SCH ×8 (00:26→21:38)
[2018-01-09] MEDS: ALLOPURINOL 100 MG TABLET PO SCH (08:50)
[2018-01-09] MEDS: GEMFIBROZIL 600 MG TABLET PO SCH ×2 (08:50→17:17)
[2018-01-09] MEDS: SITAGLIPTIN 100 MG TABLET PO SCH (08:50)
[2018-01-09] MEDS: METFORMIN 1,000 MG TABLET PO SCH ×2 (08:50→17:17)
[2018-01-09] MEDS: RIVAROXABAN 10 MG TABLET PO SCH (08:50)
[2018-01-09] MEDS: POLYETHYL GLYCOL 3350 17gm PACKET PO SCH (08:51)
[2018-01-09] MEDS: SENNA + DOCUSATE TABLET PO SCH ×3 (08:51→21:38)
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
[2018-01-09 09:49] VITALS: RESP 16
[2018-01-09] MEDS: INSULIN ASPART 100unit/ml INJECTION SQ PRN (11:05)
[2018-01-09] MEDS: INSULIN DETEMIR 100unit/ml INJECTION SQ SCH (21:38)
[2018-01-10] MEDS: Oxycodone *IR* 5 MG TABLET PO SCH ×8 (01:46→20:26)
[2018-01-10] MEDS: METFORMIN 1,000 MG TABLET PO SCH ×2 (08:29→17:06)
[2018-01-10] MEDS: GEMFIBROZIL 600 MG TABLET PO SCH ×2 (08:29→17:06)
[2018-01-10] MEDS: SITAGLIPTIN 100 MG TABLET PO SCH (08:30)
[2018-01-10] MEDS: SENNA + DOCUSATE TABLET PO SCH ×2 (08:30→20:27)
[2018-01-10] MEDS: ALLOPURINOL 100 MG TABLET PO SCH (08:30)
[2018-01-10] MEDS: RIVAROXABAN 10 MG TABLET PO SCH (08:30)
[2018-01-10] MEDS: POLYETHYL GLYCOL 3350 17gm PACKET PO SCH (08:30)
--- NOTE | 2018-01-10 10:15 | IRU Progress Note ---
- Subjective/Serverity of Illness Date: 01/10/18 Rufino was interviewed and examined in the gymnasium area on acute inpatient rehabilitation. He is cooperative with therapy. He does have some shortness of breath with activity felt to be secondary to deconditioning with anything else. He denies any chest pain. He is progressing with therapy and states that he feels stronger. He reports the pain is improved a bit. Still has quite a bit of discomfort in the right lower extremity when he bears weight. Brief therapy update: He is standby assist to supervision level for bathing, upper and lower body dressing and is contact-guard assist for transfers. He is able to walk with a hemiwalker but has quite a bit of discomfort in the right lower extremity. Efforts are underway to work on transfers etc. seem may well be requiring wheelchair ambulation at home for the most part until this heals better. Update on medical issues we are actively monitoring and managing as follows: 1. Multiple fractures:Wearing a sling to RUE. Pain is fairly well-controlled. Pain with weight bearing RLE as anticipated. 2. Diabetes Mellitus type II, not controlled: Sugars are better at around 140' s. No hypoglycemic spells noted. 3. Gout: No current issues. 4. Slow transit constipation: He has started having daily stools over the last three days. Exam Vital Signs: Temperature 98.3 F 01/10/18 06:59 Pulse Rate 81 01/10/18 06:59 Respiratory Rate 16 01/10/18 06:59 Blood Pressure 141/76 H 01/10/18 06:59 Pulse Oximetry 94 01/10/18 06:59 Height/Weight/BMI: Height 1.8 m Weight 95.3 kg Body Mass Index 29.2 - Constitutional Present: mild distress (fatigue with exercies. ), well nourished, well developed , average body habitus, cooperative - Routine HEENT Exam Eye: Present: EOMI ENT: Present: mucous membranes moist, oropharynx clear - Routine Neck Exam Present: supple - Routine Respiratory Exam Present: CTA bilaterally. Absent: wheezes - Routine Cardiovascular Exam Present: RRR, S1, S2. Absent: murmur - Routine Abdominal Exam Present: soft, normoactive bowel sounds, non distended. Absent: tenderness - Routine Extremities Exam Present: no edema Comments: Right upper extremity in sling (non weight bearing). Right leg in splint. - Routine Back/Spine/Pelvis Exam Back/Spine: Present: full ROM - Routine Skin Exam Present: dry, warm - Routine Neurological Exam Present: alert, oriented X3, CN II-XII intact - Routine Psychiatric Exam Present: normal affect, normal thought process, cooperative, good insight, good judgment Results IRU - Labs Labs: I reviewed lab work, other providers notes and chart data. IRU A/P (1) S/P ORIF (open reduction internal fixation) fracture Current visit: Yes Status: Acute He has pain in the right lower [place] with weightbearing as anticipated. Clinically he seems to be healing okay. No additional radiographs have been obtained recently. 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 (4) Hypertriglyceridemia Current visit: Yes Status: Chronic (5) Gout Qualifiers: Gout site: multiple sites Gout etiology: unspecified cause Chronicity: chronic Qualified Code(s): M1A.09X0 - Idiopathic chronic gout, multiple sites , without tophus (tophi) Current visit: Yes Status: Chronic (6) Slow transit constipation Current visit: Yes Status: Acute Reports that his bowels are now moving. Remains on MiraLAX and stool softener. DVT Prophylaxis: Xarelto Resuscitation Status: Full Code - Course Hospital Course: Bi Sánchez MD: 01/07/18 11:21 Substantial pain with ambulation as noted in the right lower extremity. He is cooperative with therapy and trying hard. Blood sugars are elevated and adjustments have been made. 01/10/18 10:17 Progressing with therapy. Pain continues but reasonably well controlled. He is now having bowel movements. - Interventions to Obtain Goals PT Treatment Plan: Balance/Proprioception, Functional Activities, Gait Training , Patient/Family Education, Therapeutic Exercise OT Treatment Plan: ADL (Basic Care), Balance Training, Pt./Family Education, Ther. Exercise for ADL Goals Progress/Modifications: Seems to be stable with regard to his fractures. Has pain in the right shoulder as well as right ribs and right leg. He is improving with functional activities. He denies any actual chest pain apart from the rib pain. Seems to have easy fatigability and gets short of breath with exertion. He is working more on transfers etc. although does walk with a hemiwalker short distances. It is anticipated he may require wheelchair at home for some time. I will work with the patient and therapist and piano case maker with regard to how much she will need to ambulate in the home environment.
[2018-01-10] MEDS: INSULIN ASPART 100unit/ml INJECTION SQ PRN (10:37)
[2018-01-10] MEDS: INSULIN DETEMIR 100unit/ml INJECTION SQ SCH (20:26)
[2018-01-11] MEDS: Oxycodone *IR* 5 MG TABLET PO SCH ×6 (04:13→23:55)
[2018-01-11] MEDS: INSULIN ASPART 100unit/ml INJECTION SQ PRN ×2 (06:30→12:03)
[2018-01-11] MEDS: METFORMIN 1,000 MG TABLET PO SCH ×2 (08:41→17:19)
[2018-01-11] MEDS: GEMFIBROZIL 600 MG TABLET PO SCH ×2 (08:41→17:19)
[2018-01-11] MEDS: RIVAROXABAN 10 MG TABLET PO SCH (08:41)
[2018-01-11] MEDS: SITAGLIPTIN 100 MG TABLET PO SCH (08:41)
[2018-01-11] MEDS: ALLOPURINOL 100 MG TABLET PO SCH (08:41)
[2018-01-11] MEDS: SENNA + DOCUSATE TABLET PO SCH ×2 (08:41→21:52)
[2018-01-11] MEDS: POLYETHYL GLYCOL 3350 17gm PACKET PO SCH (08:43)
--- NOTE | 2018-01-11 10:24 | IRU Progress Note ---
- Subjective/Serverity of Illness Date: 01/11/18 Rufino was evaluated in his room on inpatient rehabilitation. He reports that his pain is doing better. He is on oxycodone IR every 4 hours instead of every 3 hours. He states that he is able to bear more weight on the right lower extremity. The chief area of discomfort remains in the right shoulder. Limited range of motion and no weightbearing are continued to be recommended in this regard. He reports his right rib area is not hurting much. He denies shortness of breath. He reports his bowels are moving. He is on Levemir at at bedtime as well as a sliding scale for short acting. His sugars are improved with regard to control. He has not given himself insulin shots in the past. I discussed this with him. He is willing to learn this and we 'll ask the natural resources extension educator to be involved in order to teach insulin administration at least at nighttime. Review of therapy notes indicates that he is walking about 10 feet with the equivalent of contact-guard assistance. He is using a hemiwalker because he is not to bear weight with the right upper extremity. Exam Vital Signs: Temperature 97.9 F 01/11/18 08:00 Pulse Rate 87 01/11/18 08:00 Respiratory Rate 16 01/11/18 08:00 Blood Pressure 120/69 01/11/18 08:00 Pulse Oximetry 98 01/11/18 08:00 Height/Weight/BMI: Height 1.8 m Weight 95.3 kg Body Mass Index 29.2 - Constitutional Present: no acute distress, well nourished, well developed, cooperative - Routine HEENT Exam Head: Present: normocephalic Eye: Present: EOMI ENT: Present: mucous membranes moist, oropharynx clear - Routine Neck Exam Present: supple - Routine Respiratory Exam Present: CTA bilaterally. Absent: wheezes - Routine Cardiovascular Exam Present: RRR, S1, S2. Absent: murmur - Routine Abdominal Exam Present: soft, normoactive bowel sounds, non distended. Absent: tenderness - Routine Extremities Exam Present: edema (trace right lower extremity) - Routine Skin Exam Present: dry, warm - Routine Neurological Exam Present: alert, oriented X3, CN II-XII intact - Routine Psychiatric Exam Present: normal affect, cooperative, good insight, good judgment Results IRU - Labs Labs: Have reviewed chart data and other providers notes. IRU A/P (1) S/P ORIF (open reduction internal fixation) fracture Current visit: Yes Status: Acute He is able to bear more weight on the right lower extremity with walking. He is able to ambulate about 10 feet. His right shoulder pain continues to be a significant factor. He is tolerating the reduced frequency of oxycodone reasonably well. He is cooperative with therapy. (2) Rib fracture Qualifiers: Encounter type: subsequent encounter Rib fracture type: single rib Fracture type: closed Laterality: right Fracture healing: with routine healing Qualified Code(s): S22.31XD - Fracture of one rib, right side, subsequent encounter for fracture with routine healing Current visit: Yes Status: Acute He reports discomfort in the right ribs is improving. Occasionally he forgets is there and then it will remind him. Denies shortness of breath. No pulmonary symptoms are reported. (3) Diabetes mellitus type II, uncontrolled Qualifiers: Diabetes mellitus care home insulin use: without care home use Diabetes mellitus complication status: without complication Qualified Code(s): E11.65 - Type 2 diabetes mellitus with hyperglycemia Current visit: Yes Status: Chronic His blood sugars are coming under better control. He is on oral agents as well as Levemir at night and a sliding insulin scale. We will ask the natural resources extension educator to instruct him on insulin usage in case he goes home with this. (4) Hypertriglyceridemia Current visit: Yes Status: Chronic (5) Gout Qualifiers: Gout site: multiple sites Gout etiology: unspecified cause Chronicity: chronic Qualified Code(s): M1A.09X0 - Idiopathic chronic gout, multiple sites , without tophus (tophi) Current visit: Yes Status: Chronic (6) Slow transit constipation Current visit: Yes Status: Acute DVT Prophylaxis: Xarelto Resuscitation Status: Full Code - Course Hospital Course: Bi Sánchez MD: 01/07/18 11:21 Substantial pain with ambulation as noted in the right lower extremity. He is cooperative with therapy and trying hard. Blood sugars are elevated and adjustments have been made. 01/10/18 10:17 Progressing with therapy. Pain continues but reasonably well controlled. He is now having bowel movements. 01/11/18 10:24 Bowels are moving better. Pain improved. Right shoulder pain is predominant. Sugars improved. Cooperative with therapy. We'll ask CDE to evaluate. - Interventions to Obtain Goals PT Treatment Plan: Balance/Proprioception, Functional Activities, Gait Training , Patient/Family Education, Therapeutic Exercise OT Treatment Plan: ADL (Basic Care), Balance Training, Pt./Family Education, Ther. Exercise for ADL Goals Progress/Modifications: Rufino is improving with therapy. He is gaining functional independence. He is able to ambulate about 10 feet. Weightbearing continues to be painful but improving with regard to the right lower extremity. His blood sugars are coming under better control. I discussed with him the issue of insulin and he is willing to learn this. We will ask CDE to evaluate and instruct in at least once daily insulin administration as well as to reinforce importance of blood glucose monitoring.
--- NOTE | 2018-01-11 13:56 | IRU Team Meeting ---
IRU Team Meeting - Nursing Bladder Assistive Devices Utilized:: Urinal Bladder Management Level of Assist: Independent Bladder Frequency of Accidents: No accidents Bowel Assistive Devices Utilized:: Medication Bowel Management Level of Assist: Independent Bowel Frequency of Accidents: No accidents Vital Signs: Vital Signs - 24 hr 01/10/18 15:47 01/10/18 21:37 01/11/18 08:00 Temperature 99.1 F 98.5 F 97.9 F Pulse Rate 95 89 87 Respiratory Rate 16 16 16 Blood Pressure 151/78 H 137/73 120/69 Pulse Oximetry 95 96 98 Current Medications: Acetaminophen (Tylenol Arthritis 650 Mg Sr) 650 mg PO Q8H [facility] Last Admin: 01/11/18 12:02 Dose: 650 mg Allopurinol (Zyloprim) 400 mg PO DAILY [facility] Last Admin: 01/11/18 08:41 Dose: 400 mg Gemfibrozil (Lopid) 600 mg PO 0730,1700 [facility] Last Admin: 01/11/18 08:41 Dose: 600 mg Insulin Aspart (Novolog) 1 - 5 unit SQ SS PRN; Protocol PRN Reason: Hyperglycemia Last Admin: 01/11/18 12:03 Dose: 1 unit Insulin Detemir (Levemir) 6 unit SQ HS [facility] Last Admin: 01/10/18 20:26 Dose: 6 unit Metformin HCl (Glucophage) 1,000 mg PO BIDWM [facility] Last Admin: 01/11/18 08:41 Dose: 1,000 mg Oxycodone HCl (Roxicodone *Ir*) 10 mg PO Q4H [facility] Last Admin: 01/11/18 12:02 Dose: 10 mg Polyethylene Glycol (Miralax) 17 gm PO DAILY [facility] Last Admin: 01/11/18 08:43 Dose: Not Given Rivaroxaban (Xarelto) 10 mg PO DAILY [facility] Last Admin: 01/11/18 08:41 Dose: 10 mg Senna/Docusate Sodium (Senna Plus Tablet) 1 tab PO BID [facility] Last Admin: 01/11/18 08:41 Dose: 1 tab Sitagliptin Phosphate (Januvia) 100 mg PO DAILY [facility] Last Admin: 01/11/18 08:41 Dose: 100 mg Current Medical Issues: Diabetes mellitus type 2, pain management Comments: I certify that I personally led the interdisciplinary team meeting and agree with comments, barriers and goals indicated. Team meeting was held in the patient's room with the patient and the following family members present: Patient's Rufino is very cooperative. His pain management is adequate. He remains on Tylenol arthritis on a routine basis as well as oxycodone with the interval having been increased a bit. He is able to eat and drink adequately. His bowels are moving. His blood sugars are improving. He will see the visual educator today for further instruction regarding insulin therapy. - Dietary 2000 kristopher consistent carb diet is recommended - Physical Therapy Bed, Chair, Wheelchair Transfer Assist: Modified Independent Ambulation Ability: Total Assistance Ambulation Distance: 8 Wheelchair Propulsion Ability: Modified Independent Wheelchair Propulsion Distance: 437 Stair Climbing Ability: Patient Unsafe/Unable Car Transfer Ability: Stand By Assist/Supervision Comments: Patient is highly motivated to go home and works well with therapy. He is able to ambulate in a wheelchair as well as short distances walking with a hemiwalker. He requires use of a hemiwalker because of his right acromial process fracture with nonweightbearing in the right upper extremity. - Occupational Therapy Eating Ability: Independent Grooming Ability: Independent Bathing Ability: Modified Independent Upper Body Dressing Ability: Independent Lower Body Dressing Ability: Independent Tub Transfer Assist: Modified Independent Toileting Assist: Independent Toilet Transfer Assist: Modified Independent Comments: Patient has met all occupational therapy ADL and IADL goals. Family education has also been provided. - Goals Physical Therapy Goals: 01/11/18: 1.) Ambulation distance of 50 feet with use of neida walker. 2.) Ambulation up and down ramp with stand-by assist. Occupational Therapy Goals: OT goals 01/11/18: 1.) Perform left upper extremity home exercise program independently. 2.) Discharge planning. - Barriers to Discharge Barriers to Attaining Goals: Balance (balance and proprioceptive activities are offered.), Pain Control (promotion of weight shifting to right side is encouraged to improve tolerance for weightbearing on the right lower extremity) - Care Plan Anticipated Length of Stay (days): 1 Anticipated DC Destination: Home, Self Care, Home Health Service I have led this team conference and agree with the plan.
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
[2018-01-11] MEDS: INSULIN DETEMIR 100unit/ml INJECTION SQ SCH (21:51)
[2018-01-12] MEDS: Oxycodone *IR* 5 MG TABLET PO SCH ×6 (02:44→17:21)
[2018-01-12] MEDS: GEMFIBROZIL 600 MG TABLET PO SCH ×2 (07:57→17:22)
[2018-01-12] MEDS: RIVAROXABAN 10 MG TABLET PO SCH (08:53)
[2018-01-12] MEDS: METFORMIN 1,000 MG TABLET PO SCH (08:53)
[2018-01-12] MEDS: SITAGLIPTIN 100 MG TABLET PO SCH (08:54)
[2018-01-12] MEDS: ALLOPURINOL 100 MG TABLET PO SCH (08:54)
[2018-01-12] MEDS: SENNA + DOCUSATE TABLET PO SCH (08:55)
[2018-01-12] MEDS: POLYETHYL GLYCOL 3350 17gm PACKET PO SCH (08:55)
[2018-01-12] MEDS: INSULIN ASPART 100unit/ml INJECTION SQ PRN (10:34)
[2018-01-12 15:53] VITALS: BP 149/71; PULSE 93; TEMP 98.5; O2SAT 98
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
== END 2018-01-12 18:00 | disposition home health service (06) | DRG 561 ==
PROVIDERS: ADMIT Internal Medicine; ATTEND Internal Medicine